=== PATIENT | male | born 1945 | race Caucasian/White ===

== ENCOUNTER 2016-06-12 13:58 | Emergency (ER) | payer MEDICARE, OTHER ==
[2016-06-12 16:18] LABS: Hematocrit 48 % (42-52); Hemoglobin 16.4 g/dl (14.0-18.0); Mean Corpuscular HGB Conc 34 g/dl (31-36); Mean Corpuscular Hemoglobin 31 pg (27-31); Mean Corpuscular Volume 90 fL (80-94); Mean Platelet Volume 9 um3 (7.4-10.4); Red Blood Count 5.35 10^6/ul (4.0-5.4); Red Cell Distribution Width 13 % (10.5-15); White Blood Count 9.1 10^3/ul (3.5-10.8)
[2016-06-12 16:33] LABS: Urine Bilirubin Negative (Negative); Urine Glucose Negative (Negative); Urine Nitrite Negative (Negative)
[2016-06-12 16:35] LABS: ALT 24 U/L (7-52); AST 19 U/L (13-39); Albumin 4.3 g/dL (3.2-5.2); Alkaline Phosphatase 81 U/L (34-104); Anion Gap 7 mmol/L (2-11); BUN/Creatinine Ratio 24.5 (8-20); Blood Urea Nitrogen 24 mg/dL (6-24); CO2 Carbon Dioxide 23 mmol/L (22-32); Calcium 9.5 mg/dL (8.6-10.3); Chloride 105 mmol/L (101-111); EGFR African American 97.2 (>60); EGFR Non-African American 75.6 (>60); Globulin 2.3 g/dL (2-4); Glucose 105 mg/dL (70-100); Lipase < 10 U/L (11.0-82.0); Potassium 4.2 mmol/L (3.5-5.0); Sodium 135 mmol/L (133-145); Total Protein 6.6 g/dL (6.4-8.9)
[2016-06-12] MEDS ORDERED: Iohexol 350* (CONTRAST) 500 ML MDV IV ONE (16:36)
--- NOTE | 2016-06-12 18:18 | RAD ---
INDICATION: Periumbilical and abdominal pain radiating to the back. COMPARISON: CT abdomen pelvis dated December 02, 2011 TECHNIQUE: Axial source images were acquired of the abdomen and pelvis utilizing CT angiographic technique with injection of 100 mL Omnipaque 350. Coronal and sagittal reconstructed images were acquired. 3-D volume rendered images were obtained. FINDINGS: Vascular findings: The lower thoracic and abdominal aorta is normal in diameter without focal pathologic dilatation or evidence of dissection. There is mild ectatic change of the abdominal aorta that also involves the bilateral iliac arteries. The iliac arteries are otherwise adequately patent and do not exhibit acute abnormality. Contrast is seen filling as far as the proximal superficial femoral arteries bilaterally. Visceral branches: There are single renal arteries bilaterally which appear adequately patent. The celiac axis, superior mesenteric artery, and inferior mesenteric artery are patent. 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 Nonvascular findings: The lung bases exhibit centrilobular emphysematous changes. Pleural-based linear densities are compatible with atelectasis. There is evidence of air trapping along the posterior aspect of both the visualized lower lobes. There is mild medium and small airway bronchiectatic dilatation. The liver, pancreas and adrenal glands are normal. The spleen is mildly enlarged measuring 13.3 cm in greatest axial dimension. The spleen is otherwise normal in appearance on these arterial phase images. The gallbladder is normal in appearance. On the arterial phase images the renal cortices enhance symmetrically. Fluid density cysts are seen bilaterally. There is no retroperitoneal or mesenteric lymphadenopathy. There is a small hiatal hernia. Surgical material at the base of the cecum is compatible with appendectomy. There is a midline supraumbilical hernia containing loops of small bowel as well as peritoneal fat. In the sagittal plane the defect measures approximately 3.7 cm in length while the herniated portions measure 11.5 cm. The exiting loop of small bowel is diminutive relative to the entering loop. Within the hernia the small bowel measures just under 2 cm in diameter and exhibits air-fluid levels. There is mild infiltration of the herniated mesenteric fat and a small amount of free fluid in the hernia. Scattered rectosigmoid diverticula are seen but none exhibit acute inflammatory change. Multilevel degenerative changes of the lower thoracic and lumbar spine are seen . There are no sinister bone lesions in the visualized bones. IMPRESSION: 1. No evidence of abdominal aortic aneurysm or acute dissection. 2. Supraumbilical midline hernia, new since the December 02, 2011 CT. There is evidence of mild inflammatory change of the mesenteric fat and partial obstruction of the involved loops of small bowel, but without pathologic dilatation. 3. 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 4. Additional chronic, degenerative and iatrogenic findings as described in the body of the report.
[2016-06-12 19:03] VITALS: BP 142/78
--- NOTE | 2016-06-12 23:29 | ED ---
I, Oh,Soantoine, scribed for Jose David Davies MD on 06/12/16 at 1616 . Abdominal Pain/Male - HPI Summary HPI Summary: This 70 y/o male presents to ED for acute, intermittent mid abd pain radiating to back since 1000 AM this morning. Pain is currently resolved in ED. He denies any n/v, fever, urinary symptoms, or any recent URI. Pt also denies any BM or flatulence at all today. PMHx is significant for ruptured appendicitis s/p emergency appendectomy by Dr. Pickens, hernia, COPD, HLD, and HTN. Pt states that his pain feels similar to his previous appendicitis, and decided to visit ED when he became concerned. - History of Current Complaint Chief Complaint: EDAbdPain Stated Complaint: ABD PAIN Time Seen by Provider: 06/12/16 16:00 Hx Obtained From: Patient Onset/Duration: Sudden Onset, Resolved Timing: Intermittent Pain Intensity: 5 Pain Scale Used: 0-10 Numeric Location: Other - mid abd pain Radiates: Yes Radiates to: Back Character: Dull Aggravating Factor(s): Nothing Alleviating Factor(s): Spontaneous Resolution Associated Signs And Symptoms: Positive: Constipation, Other - negative BM today. Negative: Fever, Nausea, Vomiting - Allergies/Home Medications Allergies/Adverse Reactions: Allergies Allergy/AdvReac Type Severity Reaction Status Date / Time Penicillins [PCN] Allergy Severe Hives/Diff. Verified 06/12/16 14:04 Breathing/I tching PMH/Surg Hx/FS Hx/Imm Hx Cardiovascular History: Reports: Hx Hypercholesterolemia, Hx Hypertension Respiratory History: Reports: Hx Chronic Obstructive Pulmonary Disease (COPD) GI History: Reports: Other GI Disorders - ruptured appendicitis s/p emergency appendectomy Infectious Disease History: No Infectious Disease History: Denies: Traveled Outside the [place] in Last 30 Days - Family History Known Family History: Positive: Hypertension - father - Social History Alcohol Use: None Hx Substance Use: No Substance Use Type: Reports: None Hx Tobacco Use: No Smoking Status (MU): Never Smoked Tobacco Review of Systems Negative: Fever Negative: Sore Throat, Nasal Discharge Positive: Abdominal Pain. Negative: Vomiting, Nausea, Other - flatulence or BM today Negative: dysuria Negative: Anxious, Depressed All Other Systems Reviewed And Are Negative: Yes Physical Exam Triage Information Reviewed: Yes Vital Signs On Initial Exam: Initial Vitals Temp Pulse Resp BP Pulse Ox 98.2 F 81 15 146/84 97 06/12/16 13:59 06/12/16 13:59 06/12/16 13:59 06/12/16 13:59 06/12/16 13:59 Vital Signs Reviewed: Yes Appearance: Positive: Well-Appearing, No Pain Distress Head/Face: Positive: Normal Head/Face Inspection ENT: Positive: Normal ENT inspection Neck: Positive: Supple, Nontender Respiratory/Lung Sounds: Positive: Clear to Auscultation, Breath Sounds Present Cardiovascular: Positive: RRR, Pulses are Symmetrical in both Upper and Lower Extremities. Negative: Leg Edema Left, Leg Edema Right Abdomen Description: Positive: Nontender, Soft, Other: - large anterior abd wall protrusion, right around the surgical scar. Easily reducible.. Negative: CVA Tenderness (R), CVA Tenderness (L) Bowel Sounds: Positive: Present - throughout Musculoskeletal: Positive: Strength/ROM Intact Neurological: Positive: Sensory/Motor Intact, Alert, Oriented to Person Place, Time Diagnostics - Vital Signs Vital Signs Temp Pulse Resp BP Pulse Ox 06/12/16 13:59 98.2 F 81 15 146/84 97 - Laboratory Lab Results: Lab Results 06/12/16 06/12/16 06/12/16 Range/Units 16:10 16:10 16:10 WBC 9.1 (3.5-10.8) 10^3/ul RBC 5.35 (4.0-5.4) 10^6/ul Hgb 16.4 (14.0-18.0) g/dl Hct 48 (42-52) % MCV 90 (80-94) fL MCH 31 (27-31) pg MCHC 34 (31-36) g/dl RDW 13 (10.5-15) % Plt Count 165 (150-450) 10^3/ul MPV 9 (7.4-10.4) um3 Neut % (Auto) 77.4 (38-83) % Lymph % (Auto) 14.5 L (25-47) % [place] % (Auto) 6.6 (1-9) % Eos % (Auto) 0.6 (0-6) % Baso % (Auto) 0.9 (0-2) % Absolute Neuts (auto) 7.0 (1.5-7.7) 10^3/ul Absolute Lymphs (auto) 1.3 (1.0-4.8) 10^3/ul Absolute Monos (auto) 0.6 (0-0.8) 10^3/ul Absolute Eos (auto) 0.1 (0-0.6) 10^3/ul Absolute Basos (auto) 0.1 (0-0.2) 10^3/ul Absolute Nucleated RBC 0 10^3/ul Nucleated RBC % 0 Sodium 135 (133-145) mmol/L Potassium 4.2 (3.5-5.0) mmol/L Chloride 105 (101-111) mmol/L Carbon Dioxide 23 (22-32) mmol/L Anion Gap 7 (2-11) mmol/L BUN 24 (6-24) mg/dL Creatinine 0.98 (0.67-1.17) mg/dL Est GFR ( Amer) 97.2 (>60) Est GFR (Non-Af Amer) 75.6 (>60) BUN/Creatinine Ratio 24.5 H (8-20) Glucose 105 H (70-100) mg/dL Lactic Acid 0.8 (0.5-2.0) mmol/L Calcium 9.5 (8.6-10.3) mg/dL Total Bilirubin 0.60 (0.2-1.0) mg/dL AST 19 (13-39) U/L ALT 24 (7-52) U/L Alkaline Phosphatase 81 (34-104) U/L C-Reactive Protein 2.10 (< 5.00) mg/L Total Protein 6.6 (6.4-8.9) g/dL Albumin 4.3 (3.2-5.2) g/dL Globulin 2.3 (2-4) g/dL Albumin/Globulin Ratio 1.9 (1-3) Lipase < 10 L (11.0-82.0) U/L Urine Color Urine Appearance Urine pH (5-9) Ur Specific [place] (1.010-1.030) Urine Protein (Negative) Urine Ketones (Negative) Urine Blood (Negative) Urine Nitrate (Negative) Urine Bilirubin (Negative) Urine Urobilinogen (Negative) Ur Leukocyte Esterase (Negative) Urine Glucose (Negative) 06/12/16 Range/Units 16:20 WBC (3.5-10.8) 10^3/ul RBC (4.0-5.4) 10^6/ul Hgb (14.0-18.0) g/dl Hct (42-52) % MCV (80-94) fL MCH (27-31) pg MCHC (31-36) g/dl RDW (10.5-15) % Plt Count (150-450) 10^3/ul MPV (7.4-10.4) um3 Neut % (Auto) (38-83) % Lymph % (Auto) (25-47) % [place] % (Auto) (1-9) % Eos % (Auto) (0-6) % Baso % (Auto) (0-2) % Absolute Neuts (auto) (1.5-7.7) 10^3/ul Absolute Lymphs (auto) (1.0-4.8) 10^3/ul Absolute Monos (auto) (0-0.8) 10^3/ul Absolute Eos (auto) (0-0.6) 10^3/ul Absolute Basos (auto) (0-0.2) 10^3/ul Absolute Nucleated RBC 10^3/ul Nucleated RBC % Sodium (133-145) mmol/L Potassium (3.5-5.0) mmol/L Chloride (101-111) mmol/L Carbon Dioxide (22-32) mmol/L Anion Gap (2-11) mmol/L BUN (6-24) mg/dL Creatinine (0.67-1.17) mg/dL Est GFR ( Amer) (>60) Est GFR (Non-Af Amer) (>60) BUN/Creatinine Ratio (8-20) Glucose (70-100) mg/dL Lactic Acid (0.5-2.0) mmol/L Calcium (8.6-10.3) mg/dL Total Bilirubin (0.2-1.0) mg/dL AST (13-39) U/L ALT (7-52) U/L Alkaline Phosphatase (34-104) U/L C-Reactive Protein (< 5.00) mg/L Total Protein (6.4-8.9) g/dL Albumin (3.2-5.2) g/dL Globulin (2-4) g/dL Albumin/Globulin Ratio (1-3) Lipase (11.0-82.0) U/L Urine Color Yellow Urine Appearance Clear Urine pH 5.0 (5-9) Ur Specific [place] 1.030 (1.010-1.030) Urine Protein Negative (Negative) Urine Ketones Negative (Negative) Urine Blood Negative (Negative) Urine Nitrate Negative (Negative) Urine Bilirubin Negative (Negative) Urine Urobilinogen Negative (Negative) Ur Leukocyte Esterase Negative (Negative) Urine Glucose Negative (Negative) Result Diagrams: 06/12/16 16:10 06/12/16 16:10 Lab Statement: Any lab studies that have been ordered have been reviewed, and results considered in the medical decision making process. - CT CTA abd/P CT Interpretation: Positive (See Comments) - 1. No evidence of abdominal aortic aneurysm or acute dissection. 2. Supraumbilical midline hernia, new since the December 02, 2011 CT. There is evidence of mild inflammatory change of the mesenteric fat and partial obstruction of the involved loops of small bowel, but without pathologic dilatation. 3. 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 4. Additional chronic, degenerative and iatrogenic findings as described in the body of the report. CT Interpretation Completed By: Radiologist Re-Evaluation - Re-Evaluation First Eval Re-Evaluation Time: 18:49 Comment: in room to update pt on CTA imaging. Fluid diet and outpatient f/u with Dr. Pickens are recommended. Pt and express understanding. Pt will return to ED with n/v and worsening abd pain. Abdominal Pain Fem Course/Dx - Course Assessment/Plan: He presents with intermittent, brief left sided abd pain. Pt describes pain mainly as aching, radiating to back. Primary concern concern was aneurysm, which was r/o. Secondly we considered ischemic bowel, which was clinically not likely. Lastly, we considered obstruction. CTA Ab/P did indicate some mild obstruction. However, pt is clinically not distended, not n/v and presents with clear bowel sounds. Mild hernia was noted to be easily reducible nontender. Pt agrees to toi f/u with further surgical workup and possible surgical repair. He will return to ED for any sign of dehydration or worsening of questionable obstruction. was present for the conversation, and they are reliable to follow through. - Diagnoses Differential Diagnosis/HQI/PQRI: Abdominal Aortic Aneurysm, Bowel Obstruction, Constipation, Diverticulitis, Ischemic Bowel, Ureteral Stone Provider Diagnoses: Abdominal pain Discharge - Discharge Plan Condition: Fair Disposition: HOME Patient Education Materials: Abdominal Pain (ED) Referrals: Sesar Gay MD [Primary Care Provider] - Chente Pickens MD [Medical Doctor] - 2 Days The documentation as recorded by the Ovidio cruz Soohyun accurately reflects the service I personally performed and the decisions made by Samson lewis Farzad, MD.
== END 2016-06-12 19:02 | disposition home or self-care (01) ==
LOC: ED 13:58
DX: R10.9 Unspecified abdominal pain (principal); K59.00 Constipation, unspecified
CPT/HCPCS: 36415; 74174; 80053; 81003; 83605; 83690; 85025; 86140; 99283; Q9967

== ENCOUNTER 2017-09-26 12:25 | Emergency (ER) | payer MEDICARE, BC ==
[2017-09-26 12:34] VITALS: BP 144/94
[2017-09-26] MEDS ORDERED: methylPREDNISolone 125 MG* 2 ML VIAL IM ONE (12:42)
[2017-09-26] MEDS ORDERED: Albuterol/Ipratropium NEB.SOL* Albuterol 2.5 MG/Ipratropium 0.5 MG 3 ML INH ONE ×2 (12:42→13:02)
--- NOTE | 2017-09-26 12:43 | ED ---
Respiratory - HPI Summary HPI Summary: 72-year-old male presents with shortness of breath for the past couple days. He states 2 weeks ago he came down a cold was seen at the [facility] and told he was having bronchitis. He was prescribed doxycycline and prednisone. He finished a course of antibiotics and steroid and felt better. He states his cough was yellow discharge then became laboratory equipment cleaner. He states that for a week he was at this baseline. He states the past couple days he developed the cough again. He states this feels similar to the infection two week ago. He admits to shortness of breath constantly. He has been using home oxygenation system daily. He states he ran out of his inhaler. He denies any chest pain. Denies any belly pain. No nausea vomiting. No sore throat. States that the shortness breath is worse at movement. He admits to wheezing. He is coughing up yellow discharge. - History of Current Complaint Chief Complaint: UCRespiratory Stated Complaint: SOB Time Seen by Provider: 09/26/17 12:36 Pain Intensity: 0 - Allergy/Home Medications Allergies/Adverse Reactions: Allergies Allergy/AdvReac Type Severity Reaction Status Date / Time Penicillins Allergy Severe Hives/Diff. Verified 09/26/17 12:26 Breathing/I tching Home Medications: Home Medications Albuterol/Ipratropium RESP(NF) [Combivent Respimat (NF)] 2 puff INH Q4HR PRN [History Confirmed 09/26/17] Atorvastatin* [Lipitor 10 MG*] 10 mg PO DAILY 09/26/17 [History Confirmed ] Fluticasone-Salmeterol 500-50* [Advair Diskus 500-50*] 1 puff INH BID 09/26/17 [ History Confirmed 09/26/17] Lisinopril TAB* [Prinivil TAB 10 MG*] 10 mg PO DAILY 09/26/17 [History Confirmed 09/26/17] PMH/Surg Hx/FS Hx/Imm Hx Endocrine/Hematology History: Denies: Hx Diabetes Cardiovascular History: Reports: Hx Hypercholesterolemia, Hx Hypertension Respiratory History: Reports: Hx Chronic Obstructive Pulmonary Disease (COPD) GI History: Reports: Other GI Disorders - ruptured appendicitis s/p emergency appendectomy History: Denies: Hx Renal Disease - Surgical History Surgery Procedure, Year, and Place: APPENDECTOMY Infectious Disease History: No Infectious Disease History: Denies: Traveled Outside the [place] in Last 30 Days - Family History Known Family History: Positive: Hypertension - father - Social History Alcohol Use: None Hx Substance Use: No Substance Use Type: Reports: None Hx Tobacco Use: No Smoking Status (MU): Former Smoker Review of Systems Negative: Fever Negative: Chest Pain Positive: Shortness Of Breath, Cough Negative: Abdominal Pain All Other Systems Reviewed And Are Negative: Yes Physical Exam Triage Information Reviewed: Yes Vital Signs On Initial Exam: Initial Vitals Temp Pulse Resp BP Pulse Ox 98.2 F 82 22 144/94 94 09/26/17 12:30 09/26/17 12:30 09/26/17 12:30 09/26/17 12:30 09/26/17 12:30 Vital Signs Reviewed: Yes Appearance: Positive: Well-Appearing Skin: Positive: Warm, Dry Head/Face: Positive: Normal Head/Face Inspection Eyes: Positive: Normal, EOMI, LAURA, Conjunctiva Clear ENT: Positive: Normal ENT inspection, Pharynx normal, TMs normal Respiratory/Lung Sounds: Positive: Decreased Breath Sounds, Wheezes Cardiovascular: Positive: Normal, RRR Abdomen Description: Positive: Nontender, Soft Bowel Sounds: Positive: Present Musculoskeletal: Positive: Normal Neurological: Positive: Normal Psychiatric: Positive: Normal Diagnostics - Vital Signs Vital Signs Temp Pulse Resp BP Pulse Ox 09/26/17 12:30 98.2 F 82 22 144/94 94 - Laboratory Lab Statement: Any lab studies that have been ordered have been reviewed, and results considered in the medical decision making process. - Radiology chest Xray Interpretation: Positive (See Comments) - IMPRESSION: HYPERINFLATION. NO ACTIVE DISEASE. Radiology Interpretation Completed By: Radiologist Re-Evaluation - Re-Evaluation First Eval Re-Evaluation Time: 13:11 Change: Improved Comment: feeling better after one neb, still some wheezing present Second Eval Re-Evaluation Time: 13:52 Change: Improved Comment: lungs CTA after second duoneb. will write for nebulizer machine Disposition - Course Course Of Treatment: 72-year-old male presents with shortness of breath for the past couple days. He states 2 weeks ago he came down a cold was seen at the [facility] and told he was having bronchitis. He was prescribed doxycycline and prednisone. He finished a course of antibiotics and steroid and felt better. He states his cough was yellow discharge then became laboratory equipment cleaner. He states that for a week he was at this baseline. He states the past couple days he developed the cough again. He states this feels similar to the infection two week ago. He admits to shortness of breath constantly. He has been using home oxygenation system daily. He states he ran out of his inhaler. He denies any chest pain. Denies any belly pain. No nausea vomiting. No sore throat. States that the shortness breath is worse at movement. He admits to wheezing. He is coughing up yellow discharge. on exam no resp distress. auditable wheezing heard. on exam decrease breath sounds. gave duoneb had improvement. chest xray hyperinflation. will try levaquin, steriod and inhaler and have follow up with primary about copd and blood pressure as is elevated at this time. told if gets any worst to go to ED. patient understand and agrees with plan. - Differential Dx - Cardiopulmonary Differential Diagnoses - Cardiopulmonary: Bronchitis, Exacerbation Of COPD, Lower Resp Infection - Diagnoses Provider Diagnoses: COPD (chronic obstructive pulmonary disease), Bronchitis Discharge - Sign-Out/Discharge Documenting (check all that apply): Discharge/Admit/Transfer - Discharge Plan Condition: Good Disposition: HOME Prescriptions: Albuterol/Ipratropium NEB.GARY* [Duoneb (Albuterol 2.5 MG/Ipratropium 0.5 MG)] 1 neb INH Q4H #30 neb.soln Levofloxacin TAB* [Levaquin TAB*] 500 mg PO DAILY #10 tab predniSONE TAB* [Deltasone TAB*] 50 mg PO DAILY #5 tab Patient Education Materials: COPD (Chronic Obstructive Pulmonary Disease) (ED) Referrals: Sesar Gay MD [Primary Care Provider] - Additional Instructions: Use nebulizer treatment every 4 hours for shortness of breath Take steroid once a day for 5 days Take antibiotic once daily for 10 days Take Tylenol for pain every 6 hours Follow up with primary within 5 days Return to ED if develop severe shortness of breath, worsening chest pain, or any new or worsening symptoms - Billing Disposition and Condition Condition: GOOD Disposition: HOME
--- NOTE | 2017-09-26 13:20 | RAD ---
INDICATION: Short of breath. COPD. COMPARISON: December 05, 2011 TECHNIQUE: PA and lateral dual-energy views were obtained. FINDINGS: Bones/Soft Tissues: There are no acute bony findings. Cardiomediastinal: The cardiomediastinal silhouette is normal. Lungs: There is hyperinflation with mild chronic interstitial changes with linear areas which are most consistent with scarring. Pleura: There are no pleural effusions. Other: None IMPRESSION: HYPERINFLATION. NO ACTIVE DISEASE.
== END 2017-09-26 13:55 | disposition home or self-care (01) ==
LOC: UCEAST 12:25
DX: J44.9 Chronic obstructive pulmonary disease, unspecified (principal); Z99.81 Dependence on supplemental oxygen; Z87.891 Personal history of nicotine dependence
CPT/HCPCS: 71046; 96372; 99213; A9270-GY; G0463; J2930

== ENCOUNTER 2017-11-17 12:04 | Emergency (ER) | payer MEDICARE ==
[2017-11-17 12:13] VITALS: BP 132/85
--- NOTE | 2017-11-17 12:20 | UC ---
Respiratory Complaint HPI - HPI Summary HPI Summary: 72 yo male presents with dry cough and increased SOB for the psat 3 days. He tells me that he has COPD and this happens every few months where he will develop a dry cough and feel increased work of breathing. He does have an oxygen machine at bedtime that he has been using. Has a nebulizer at home that he used once with great relief, but he ran out of neb solution. Denies fever, chills, sinus symptoms, sore throat, chest pain, n/v. - History of Current Complaint Chief Complaint: UCRespiratory Stated Complaint: COUGH,CONGESTED Time Seen by Provider: 11/17/17 12:19 Hx Obtained From: Patient Onset/Duration: Gradual Onset Severity Initially: Moderate Severity Currently: Moderate Pain Intensity: 6 Pain Scale Used: 0-10 Numeric Character: Cough: Nonproductive - Allergies/Home Medications Allergies/Adverse Reactions: Allergies Allergy/AdvReac Type Severity Reaction Status Date / Time Penicillins Allergy Severe Hives/Diff. Verified 11/17/17 12:13 Breathing/I tching PMH/Surg Hx/FS Hx/Imm Hx Endocrine History: Dyslipidemia Cardiovascular History: Hypertension Respiratory History: COPD - Surgical History Surgical History: Yes Surgery Procedure, Year, and Place: APPENDECTOMY - Family History Known Family History: Positive: Hypertension - father - Social History Occupation: Retired Lives: With Family Alcohol Use: None Substance Use Type: None Smoking Status (MU): Former Smoker When Did the Patient Quit Smoking/Using Tobacco: 2007 Household Exposure Type: Cigarettes Review of Systems Constitutional: Negative Skin: Negative Eyes: Negative ENT: Negative Respiratory: Cough Cardiovascular: Negative Gastrointestinal: Negative Neurovascular: Negative Neurological: Negative Psychological: Negative All Other Systems Reviewed And Are Negative: Yes Physical Exam - Summary Physical Exam Summary: GENERAL: NAD. WDWN. No pain distress. SKIN: No rashes, sores, lesions, or open wounds. HEENT: Head: AT/NC Eyes: Conjunctiva clear without inflammation or discharge. Ears: Hearing grossly normal. TMs intact, no bulging, erythema, or edema. Nose: Nasal mucosa pink and moist. NTTP maxillary and frontal sinus. Throat: Posterior oropharynx without exudates, erythema, or tonsillar enlargement. Uvula midline. NECK: Supple. Nontender. No lymphadenopathy. CHEST: Moderate wheezing throughout. No r/r. No accessory muscle use. Breathing comfortably and in no distress. CV: Pulses intact. Brisk cap refill. NEURO: Alert. CN II-XII grossly intact. PSYCH: Age appropriate behavior. Triage Information Reviewed: Yes Vital Signs: Initial Vital Signs Temp 96.8 F 11/17/17 12:07 Pulse 92 11/17/17 12:07 Resp 17 11/17/17 12:07 BP 132/85 11/17/17 12:07 Pulse Ox 95 11/17/17 12:07 Vital Signs Reviewed: Yes UC Diagnostic Evaluation - Laboratory O2 Sat by Pulse Oximetry: 95 Re-Evaluation - Re-Evaluation First Eval Change: Improved Comment: Improved s/p duoneb with less wheezing throughout Respiratory Course/Dx - Course Course Of Treatment: CXR: IMPRESSION: 1. LINEAR DENSITIES AT BOTH LUNG BASES MOST CONSISTENT WITH SUBSEGMENTAL ATELECTASIS OR. SCARRING. 2. BLUNTING OF THE RIGHT COSTOPHRENIC ANGLE CONSISTENT WITH A SMALL PLEURAL EFFUSION OR. PLEURAL THICKENING, UNCHANGED. 3. COPD. Suspect COPD exacerbation. Advised to have him f/u with his PCP next week or sooner if his symptoms persist or worsen. - Differential Dx/Diagnosis Provider Diagnoses: COPD exacerbation Discharge - Sign-Out/Discharge Documenting (check all that apply): Patient Departure - Discharge Plan Condition: Stable Disposition: HOME Prescriptions: Albuterol/Ipratropium NEB.GARY* [Duoneb (Albuterol 2.5 MG/Ipratropium 0.5 MG)] 1 neb INH Q4H PRN #30 neb.gary PRN Reason: Wheezing Azithromycin TAB* [Zithromax TAB (Z-VERNON) 250 mg #6 tabs] 2 tab PO .TODAY, THEN 1 DAILY #1 vernon Benzonatate CAP* [Tessalon 100 MG CAP*] 100 mg PO TID PRN #21 cap PRN Reason: Cough predniSONE TAB* [Deltasone TAB*] 50 mg PO DAILY #5 tab Patient Education Materials: COPD (Chronic Obstructive Pulmonary Disease) (DC) Referrals: Sesar Gay MD [Primary Care Provider] - Additional Instructions: If you develop a fever, shortness of breath, chest pain, new or worsening symptoms - please call your PCP or go to the ED. Your blood pressure was high at todays visit. Please see your primary provider within 4 weeks for recheck and re-evaluation. - Billing Disposition and Condition Condition: STABLE Disposition: Home
[2017-11-17] MEDS ORDERED: Albuterol/Ipratropium NEB.SOL* Albuterol 2.5 MG/Ipratropium 0.5 MG 3 ML INH ONE (12:27)
--- NOTE | 2017-11-17 12:53 | RAD ---
INDICATION: Cough, COPD. COMPARISON: Comparison is made with a prior chest x-ray study from September 26, 2017. TECHNIQUE: Dual-energy PA and lateral views of the chest were obtained. FINDINGS: The heart is within normal limits in size. Mediastinal and hilar contours appear within normal limits. There are linear densities at both lung bases. There is flattening of the diaphragms. There is blunting of the right costophrenic angle consistent with a small pleural effusion or pleural thickening which is unchanged. IMPRESSION: 1. LINEAR DENSITIES AT BOTH LUNG BASES MOST CONSISTENT WITH SUBSEGMENTAL ATELECTASIS OR SCARRING. 2. BLUNTING OF THE RIGHT COSTOPHRENIC ANGLE CONSISTENT WITH A SMALL PLEURAL EFFUSION OR PLEURAL THICKENING, UNCHANGED. 3. COPD.
== END 2017-11-17 13:15 | disposition home or self-care (01) ==
LOC: UCEAST 12:04
DX: J44.1 Chronic obstructive pulmonary disease with (acute) exacerbation (principal); I10 Essential (primary) hypertension; Z87.891 Personal history of nicotine dependence; Z99.81 Dependence on supplemental oxygen; Z88.0 Allergy status to penicillin
CPT/HCPCS: 71046; 99212; A9270-GY; G0463

== ENCOUNTER 2018-01-10 23:46 | Inpatient (IN) | payer MEDICARE ==
[2018-01-11] MEDS ORDERED: Ondansetron ODT TAB* 4 MG PO ONE (00:09)
[2018-01-11] MEDS ORDERED: Morphine VIAL* 10 MG/ML 1 ML VIAL IV ONE ×2 (00:10→00:50)
[2018-01-11] MEDS ORDERED: Morphine INJ* 2 MG/ML 1 ML SYRINGE (TWO MG - NEW SYRINGE VERSION) ONE (00:15)
--- NOTE | 2018-01-11 00:16 | ED ---
Abdominal Pain/Male - HPI Summary HPI Summary: Patient with history of ventral hernia 3 years complains of hernia suddenly becoming hard and not reducible this afternoon, associated with nausea vomiting and 8/10 pain radiating to lower back.. Also states no BM 2 days. Patient states hernia has never bothered him, normally soft and easily reducible when he lays flat. Denies fever, cough, sore throat, CP, SOB, diarrhea, change in urine. Medical history COPD, HTN, HDL. Abdominal/surgical history is appendectomy. States hernia appeared a few months after appendectomy. Patient states current meds are atorvastatin, lisinopril and inhaler. - History of Current Complaint Chief Complaint: EDAbdPain Stated Complaint: ABD PAIN Time Seen by Provider: 01/10/18 23:54 Hx Obtained From: Patient Onset/Duration: Sudden Onset Timing: Constant Severity Initially: Severe Severity Currently: Severe Pain Intensity: 9 Pain Scale Used: 0-10 Numeric Radiates to: Back Character: Sharp Aggravating Factor(s): Movement Alleviating Factor(s): Nothing Associated Signs And Symptoms: Positive: Back Pain, Nausea, Vomiting - Allergies/Home Medications Allergies/Adverse Reactions: Allergies Allergy/AdvReac Type Severity Reaction Status Date / Time Penicillins Allergy Severe Hives/Diff. Verified 11/17/17 12:13 Breathing/I tching Home Medications: Home Medications Spiriva CAP.INH* 1 puff INH BID 01/11/18 [History Confirmed 01/11/18] Vitamin D TAB* 1,000 units PO DAILY 01/11/18 [History Confirmed 01/11/18] PMH/Surg Hx/FS Hx/Imm Hx Endocrine/Hematology History: Denies: Hx Anticoagulant Therapy, Hx Diabetes Cardiovascular History: Reports: Hx Hypercholesterolemia, Hx Hypertension Denies: Hx Cardiac Arrest Comment Only: Other Cardiovascular Problems/Disorders - HIGH BLOOD PRESSURE Respiratory History: Reports: Hx Chronic Obstructive Pulmonary Disease (COPD) Denies: Hx Asthma GI History: Reports: Other GI Disorders - ruptured appendicitis s/p emergency appendectomy History: Denies: Hx Dialysis, Hx Renal Disease Neurological History: Denies: Hx CVA - Surgical History Surgery Procedure, Year, and Place: APPENDECTOMY Infectious Disease History: No Infectious Disease History: Denies: Traveled Outside the [place] in Last 30 Days - Family History Known Family History: Positive: Hypertension - father - Social History Alcohol Use: None Hx Substance Use: No Substance Use Type: Reports: None Hx Tobacco Use: No Smoking Status (MU): Former Smoker Review of Systems Constitutional: Negative Eyes: Negative ENT: Negative Cardiovascular: Negative Positive: Shortness Of Breath Gastrointestinal: Negative Positive: Abdominal Pain, Vomiting, Nausea Genitourinary: Negative Musculoskeletal: Negative Skin: Negative Neurological: Negative Psychological: Normal All Other Systems Reviewed And Are Negative: Yes Physical Exam - Summary Physical Exam Summary: Large hard ventral hernia. Nonreducible. No erythema, ecchymosis, extra warmth noted. Tender to palpation. Abdomen generally nontender to palpation in any other quadrant. Triage Information Reviewed: Yes Vital Signs On Initial Exam: Initial Vitals Temp Pulse Resp BP Pulse Ox 97.7 F 72 20 139/80 91 01/10/18 23:50 01/10/18 23:50 01/10/18 23:50 01/10/18 23:50 01/10/18 23:50 Vital Signs Reviewed: Yes Appearance: Positive: Well-Appearing Skin: Positive: Warm Head/Face: Positive: Normal Head/Face Inspection Eyes: Positive: Normal Neck: Positive: Supple Respiratory/Lung Sounds: Positive: Clear to Auscultation Cardiovascular: Positive: Normal Abdomen Description: Positive: Other: Musculoskeletal: Positive: Normal Neurological: Positive: Normal Psychiatric: Positive: Normal AVPU Assessment: Alert - [place] Coma Scale Best Eye Response: 4 - Spontaneous Best Motor Response: 6 - Obeys Commands Best Verbal Response: 5 - Oriented Coma Scale Total: 15 Diagnostics - Vital Signs Vital Signs Temp Pulse Resp BP Pulse Ox 01/10/18 23:50 97.7 F 72 20 139/80 91 - Laboratory Result Diagrams: 01/11/18 00:17 01/11/18 00:17 Lab Statement: Any lab studies that have been ordered have been reviewed, and results considered in the medical decision making process. Abdominal Pain Fem Course/Dx - Course Course Of Treatment: Patient with history of ventral hernia 3 years complains of hernia suddenly becoming hard and not reducible this afternoon, associated with nausea vomiting and 8/10 pain radiating to lower back.. Also states no BM 2 days. Patient states hernia has never bothered him, normally soft and easily reducible when he lays flat. Denies fever, cough, sore throat, CP, SOB, diarrhea, change in urine. Medical history COPD. Abdominal/surgical history is appendectomy. Physical exam:Large hard ventral hernia. Nonreducible. No erythema, ecchymosis, extra warmth noted. Tender to palpation. Abdomen generally nontender to palpation in any other quadrant. Vital signs normal. White count 13.9. Discussed patient with surgery Dr. Pickens recommended CT abdomen and pelvis with no contrast. Diagnosed with incarcerated hernia and bowel obstruction. Admitted for surgery - Diagnoses Provider Diagnoses: Incarcerated ventral hernia Discharge - Sign-Out/Discharge Documenting (check all that apply): Patient Departure - Discharge Plan Condition: Stable Disposition: ADMITTED TO [facility] Referrals: Sesar Gay MD [Primary Care Provider] - - Billing Disposition and Condition Condition: STABLE Disposition: Admitted to [facility]
[2018-01-11 00:23] LABS: ABS Basophils 0.1 10^3/ul (0-0.2); ABS Eosinophils 0.1 10^3/ul (0-0.6); ABS Lymphocytes 1.5 10^3/ul (1.0-4.8); ABS Monocytes 0.7 10^3/ul (0-0.8); ABS Neutrophils 11.5 10^3/ul (1.5-7.7); ABS Nucleated RBC 0 10^3/ul; Eosinophil % 0.6 % (0-6); Hematocrit 50 % (42-52); Hemoglobin 17.1 g/dl (14.0-18.0); Lymphocyte % 10.8 % (25-47); Mean Corpuscular HGB Conc 34 g/dl (31-36); Mean Corpuscular Hemoglobin 31 pg (27-31); Mean Corpuscular Volume 90 fL (80-94); Mean Platelet Volume 8.8 um3 (7.4-10.4); Nucleated Red Blood Cells % 0.3; Platelet Count 226 10^3/ul (150-450); Red Blood Count 5.57 10^6/ul (4.00-5.40); Red Cell Distribution Width 14 % (10.5-15); White Blood Count 13.9 10^3/ul (3.5-10.8)
[2018-01-11 00:41] LABS: EGFR Non-African American 65.1 (>60)
[2018-01-11 00:46] LABS: Urine Appearance Cloudy; Urine Blood Negative (Negative); Urine Color Yellow; Urine Ketones Negative (Negative); Urine Protein 2+(100 mg/dL) (Negative); Urine Red Blood Cell 1+(3-5/hpf) (Absent); Urine Specific Gravity 1.033 (1.010-1.030); Urine Urobilinogen Negative (Negative); Urine White Blood Cell Trace(0-5/hpf) (Absent)
[2018-01-11] MEDS ORDERED: Iohexol 300* (CONTRAST) 10 ML SDV IV ONE (01:10)
[2018-01-11] MEDS ORDERED: Succinylcholine* 20 MG/ML 10 ML VIAL ONE (01:43)
[2018-01-11] MEDS ORDERED: Lidocaine 2% PF * 5 ML VIAL ONE (01:43)
[2018-01-11] MEDS ORDERED: Propofol* 10 MG/ML 20 ML BTL IV PUSH ONE (01:43)
[2018-01-11] MEDS ORDERED: fentaNYL* 50 MCG/ML 2 ML VIAL (100 MCG VIAL) ONE ×5 (01:45→05:55)
[2018-01-11] MEDS ORDERED: oxyCODONE TAB* 5 MG TAB PO PRN (01:55)
[2018-01-11] MEDS ORDERED: Naloxone* 0.4 MG/ML 1 ML VIAL IV PRN (01:55)
[2018-01-11] MEDS ORDERED: Sodium Citrate/Citric Acid* 15 ML UDC PO ONE (01:55)
[2018-01-11] MEDS ORDERED: DiMENhydriNATE IV* 50 MG/ML VIAL IV PUSH PRN (01:55)
[2018-01-11] MEDS ORDERED: Acetaminophen IV 1GM/100ML * 1,000 MG/100 ML VIAL IVPB ONE (01:55)
[2018-01-11] MEDS ORDERED: Sodium Citrate/Citric Acid* 15 ML UDC ONE (02:03)
[2018-01-11] MEDS ORDERED: Clindamycin 900 MG/D5W BAG(*) 900 MG/50 ML BAG IVPB ONE (02:14)
[2018-01-11] MEDS ORDERED: Gentamicin ADULT (*) 400 MG in NS 0.9% 100 ML* 100 ML IVPB ONE (02:30)
[2018-01-11] MEDS ORDERED: Rocuronium* 10 MG/ML VIAL ONE (02:57)
[2018-01-11] MEDS ORDERED: Bupivacaine 0.25% SDV PF* 10 ML VIAL INJ ONE (03:08)
--- NOTE | 2018-01-11 03:10 | RAD ---
EXAM: CT Abdomen and Pelvis Without Intravenous Contrast CLINICAL HISTORY: 72 years old, male; Pain; Abdominal pain; Localized; Upper; Additional info: Ab pain TECHNIQUE: Axial computed tomography images of the abdomen and pelvis without intravenous contrast. All CT scans at this facility use at least one of these dose optimization techniques: automated exposure control; mA and/or kV adjustment per patient size (includes targeted exams where dose is matched to clinical indication); or iterative reconstruction. Coronal and sagittal reformatted images were created and reviewed. COMPARISON: CTA A/PW CTA ABD/PEL 06/12/2016 4:43 PM FINDINGS: Lung bases: Bilateral increased interstitial markings and areas of atelectasis. 3 mm nodule in the lingula (series 2 image 2). Mediastinum: Small hiatal hernia. ABDOMEN: Liver: Unremarkable. Gallbladder and bile ducts: Unremarkable. No calcified stones. No ductal dilation. Pancreas: Atrophic pancreas. No ductal dilation. Spleen: Unremarkable. No splenomegaly. Adrenals: Unremarkable. No mass. Kidneys and ureters: Stable bilateral renal cysts. No obstructing stones. No hydronephrosis. Stomach and bowel: Multiple dilated fluid filled small bowel loops in the left and midabdomen extending into the large anterior abdominal wall hernia with dilated afferent loop and decompressed efferent loop mild surrounding inflammatory changes surrounding the dilated small bowel loops in the left abdomen and within the hernial sac. Findings are concerning for small bowel obstruction with lead point in the hernial sac. Colon is unremarkable. PELVIS: Appendix: Status post appendectomy with postsurgical changes in the right lower quadrant. Bladder: Unremarkable. No stones. Reproductive: Unremarkable as visualized. ABDOMEN and PELVIS: Intraperitoneal space: Unremarkable. No free air. No significant fluid collection. Bones/joints: No acute fracture. No dislocation. Soft tissues: See above. Vasculature: Atherosclerosis. No abdominal aortic aneurysm. Lymph nodes: Unremarkable. No enlarged lymph nodes. IMPRESSION: Multiple dilated fluid filled small bowel loops in the left and midabdomen extending into the large anterior abdominal wall hernia with dilated afferent loop and decompressed efferent loop . Mild surrounding inflammatory changes surrounding the dilated small bowel loops in the left abdomen and within the hernial sac. Findings are concerning for small bowel obstruction with lead point in the hernial sac.
[2018-01-11] MEDS ORDERED: Phenylephrine IV* 40 MCG/ML 10 ML SYRINGE ONE (03:21)
[2018-01-11] MEDS ORDERED: EPHEDrine (Pressors)* 50 MG/ML VIAL ONE (03:37)
--- NOTE | 2018-01-11 03:41 | HP ---
CC: [facility]; Dr. Sesar Gay * HISTORY AND PHYSICAL: DATE OF ADMISSION: 01/11/18 - The patient is seen in the emergency room on 01/11/18. HISTORY OF PRESENT ILLNESS: Mr. Markham is a 72-year-old gentleman, who presents to the emergency room with complaints of enlarging and non-reducible hernia at the upper abdomen along with abdominal pain. The patient describes having hernia at previous laparoscopic appendectomy site in the right upper quadrant. This had been reducible and nonsymptomatic. The patient had been followed for this. This afternoon, he noted that he had some nausea and vomiting and hernia became more firm and nonreducible. The patient also describes having no bowel movement for over 2 days now. He is also obstipated. Denies any appetite. He has not eaten. PAST MEDICAL HISTORY: COPD, hypertension. PAST SURGICAL HISTORY: Laparoscopic appendectomy for perforated appendicitis, prolonged hospital course. MEDICATIONS: Include: 1. Atorvastatin. 2. Lisinopril. 3. Multiple inhalers. FAMILY HISTORY: Noncontributory. SOCIAL HISTORY: Retired. Former smoker, quit 12 years ago. He lives with his family. REVIEW OF SYSTEMS: Periodic shortness of breath is unchanged. Cardiac disease as described above. No fevers or chills. No appetite. Nausea and vomiting as described. Abdominal pain as described. Change in bowel habits as described. No endocrine disorders. No complications of anesthesia. The patient did have prolonged hospitalization in 2011 after the perforated appendix. No bleeding or clotting disorders, not on blood thinners. No psychiatric or neurologic diseases. PHYSICAL EXAMINATION GENERAL: He is alert and oriented x3, in no apparent distress. VITAL SIGNS: The patient is afebrile. Heart rate 60s, blood pressure 119/84, O2 saturation 91% on room air, respiration rate is 16. HEENT: Sclerae anicteric. Mucous membranes are dry. NECK: No lymphadenopathy. LUNGS: Clear. ABDOMEN: Obese, distended, tender with what appears to be a port site hernia that does measure approximately 7 cm with nonreducible abdominal contents with mild skin changes, tender to the touch, elsewhere in the abdomen is not tender. Decreased bowel sounds. No hernias elsewhere. RECTAL: Exam not performed. EXTREMITIES: With mild 1+ pitting edema, bilateral lower extremities. DIAGNOSTIC STUDIES/LAB DATA: Labs show white count of 13.9, H and H 17/50. Chemistry Panel: Sodium of 134, BUN 28, creatinine 1.1, which is above his baseline. LFTs and lipase normal. Urinalysis shows protein. The patient underwent a CAT scan, these images are not available on the computer at this point. IMPRESSION: Incarcerated ventral incisional hernia with secondary to small bowel obstructive symptoms. RECOMMENDATIONS: Exploratory laparotomy and repair of ventral hernia with possible mesh. The patient may require excision of bowel with likely re- anastomosis, possible prolonged hospitalization. I discussed this with the patient and recommended urgent intervention. The patient agrees to proceed. We spoke of the possible alternatives of taxis and observation, but I do not believe this is beneficial as the patient did undergo attempted reduction. The patient did listen as I discussed the possible complications, which include, but not limited to bleeding, infection, intestinal leak if the patient undergoes an anastomosis, small bowel injury, recurrent hernia, prolonged hospitalization, prolonged intubation, possibility of . The patient's questions were answered and consent was signed. We will give him IV fluids. He will receive dose of antibiotics before the operating room and get Johnston catheter placed. [id number]/[facility] #: [id number] MTDD
[2018-01-11] MEDS ORDERED: Ketorolac INJ* 30 MG/ML 1 ML VIAL ONE (03:58)
[2018-01-11] MEDS ORDERED: KETAMINE HCL* 50 MG/ML 10 ML VIAL ONE (04:11)
[2018-01-11] MEDS ORDERED: Sugammadex * 200 MG/2 ML VIAL IV PUSH ONE (04:26)
[2018-01-11] MEDS ORDERED: Ondansetron INJ* 2 MG/ML VIAL IV PRN (04:52)
--- NOTE | 2018-01-11 04:52 | BRIEFOPN ---
Brief Operative Note - Surgery Procedures: Pre-OP Diagnoses: incarcerated ventral hernia, SBO Post-op Diagnosis: same Procedure: mini exploratory laparotomy, HERBERTH, ventral hernia repair with mesh Surgeon: Celio Asst: None Anethesia: Mahin RAMIREZ EBL: 100ccc IVF: 2000cc LR Specimen: hernia sac Drains: #10 JOSH
[2018-01-11] MEDS ORDERED: Metoprolol Tartrate IV* 1 MG/ML 5 ML VIAL ONE (04:53)
[2018-01-11] MEDS ORDERED: Albuterol/Ipratropium RESP(NF) MDI (Combivent Respimat) INH PRN (04:55)
[2018-01-11] MEDS ORDERED: Albuterol/Ipratropium NEB.SOL* Albuterol 2.5 MG/Ipratropium 0.5 MG 3 ML INH PRN (04:55)
[2018-01-11] MEDS ORDERED: Naloxone* 0.4 MG/ML 1 ML VIAL IV PUSH PRN (04:56)
[2018-01-11] MEDS ORDERED: Albuterol/Ipratropium NEB.SOL* Albuterol 2.5 MG/Ipratropium 0.5 MG 3 ML INH SCH (05:00)
[2018-01-11] MEDS ORDERED: Morphine PCA ADULT* 5 MG/ML 30 ML PCA SCH (05:00)
[2018-01-11] MEDS ORDERED: Levalbuterol 0.63MG/3ML NEB* UNIT OF USE INH ONE ×2 (05:06→05:07)
[2018-01-11] MEDS: fentaNYL* 50 MCG/ML 2 ML VIAL (100 MCG VIAL) IV PRN ×3 (05:16→05:56)
[2018-01-11] MEDS ORDERED: Morphine PCA ADULT* 5 MG/ML 30 ML ONE (05:19)
[2018-01-11] MEDS ORDERED: Acetaminophen IV 1GM/100ML * 100 ML ONE (05:23)
[2018-01-11] MEDS ORDERED: DiMENhydriNATE IV* 50 MG/ML VIAL ONE (05:27)
[2018-01-11] MEDS ORDERED: SPIRIVA INH SCH (09:00)
[2018-01-11] MEDS: Lisinopril TAB* 10 MG PO SCH (09:47)
[2018-01-11] MEDS ORDERED: Dextrose 50% Syringe 50 ML* 25 GM/50 ML SYRINGE IV PUSH PRN (10:42)
[2018-01-11] MEDS: Albuterol/Ipratropium NEB.SOL* Albuterol 2.5 MG/Ipratropium 0.5 MG 3 ML INH SCH ×4 (11:04→23:50)
[2018-01-11] MEDS: Insulin LISPRO* 1 UNITS UNIT SUBCUT SCH ×2 (12:07→17:38)
[2018-01-11] MEDS ORDERED: Spiriva Inhaler DEVICE* 1 EACH DEVICE SCH (13:00)
[2018-01-11] MEDS ORDERED: Spiriva Inhaler DEVICE* 1 EACH DEVICE INH SCH (13:00)
[2018-01-11] MEDS ORDERED: Tiotropium CAP.INH* CAP.INH/18 MCG (USE ORDER SET !) INH SCH (13:00)
--- NOTE | 2018-01-11 13:23 | RAD ---
Indication: Hypoxia. Single frontal view of the chest performed at 1300 hours was reviewed. Comparison is made with previous exam dated November 17, 2017. Left basilar atelectasis is noted. Right lung field appears clear. Heart is of normal size and configuration. IMPRESSION: LEFT BASE ATELECTASIS. NO DEFINITE PNEUMONIA IS IDENTIFIED.
--- NOTE | 2018-01-11 13:46 | PN ---
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
[2018-01-11] MEDS: Heparin VIAL(*) 5000 UNITS/ML VIAL (FIVE THOUSAND) SUBCUT SCH ×2 (14:40→22:35)
--- NOTE | 2018-01-11 21:26 | CONS ---
CONSULTATION REPORT: DATE OF CONSULT: 01/11/18 PROVIDER: Gallo Bailey NP ATTENDING PHYSICIAN: Dr. Henley (report dictated by Gallo Bailey NP). PRIMARY CARE PROVIDER: Dr. Sesar Gay. REFERRING PROVIDER: Dr. Chente Pickens. REASON FOR CONSULT: Co-medical management. HISTORY OF PRESENT ILLNESS: Mr. Markham is a 72-year-old male who presented to the emergency department with complaints of enlarging and nonreducible hernia in the upper abdomen along with abdominal pain. The patient had associated nausea, vomiting, and low back pain. He reported constipation x2 days. Normally, he has been able to easily reduce the hernia when he lies flat; however, he was unable to do this. In the emergency department, he was evaluated by surgical team, Dr. Pickens, who was unable to reduce the hernia and noted a large hard ventral hernia in which he was diagnosed with incarcerated hernia and bowel obstruction. The patient underwent urgent surgical intervention and underwent an exploratory laparotomy and ventral hernia repair with mesh. Estimated blood loss was 100 mL. Postoperatively, the patient has done well and has been admitted to short-stay surgical unit. Hospital Medicine was asked to co-medical manage the patient's comorbidities. The patient has a history of COPD, hypertension, hyperlipidemia, and prediabetes. The patient is evaluated at the bedside in which he was found to be alert and oriented x3. He reports his abdomen feels distended, but states his pain is improved throughout the day, except when he coughs. He denies any flatulence or bowel movement. He reports that he is a prediabetic and his primary is following his hemoglobin A1c. He denies shortness of breath. He reports that his COPD is stable. Denies any recent exacerbation, cough, sputum production. He wears 2 L nasal cannula at nighttime. PAST MEDICAL HISTORY: 1. COPD, wears 2 L nasal cannula at bedtime. 2. Prediabetes with a hemoglobin A1c of 6.1. 3. Hypertension. 4. Hyperlipidemia. 5. Obesity. PAST SURGICAL HISTORY: Laparoscopic appendectomy for perforated appendicitis with prolonged hospital course. MEDICATIONS: Home medications: 1. Vitamin D 1000 units p.o. daily. 2. Spiriva cap 1 puff INH b.i.d. 3. Lipitor 10 mg p.o. daily. 4. Combivent 2 puffs INH q.4 hours p.r.n. 5. DuoNeb 1 neb INH q.4 hours. 6. Lisinopril 10 mg p.o. daily. Current medications reviewed and appreciated. ALLERGIES: PENICILLIN. FAMILY HISTORY: Reviewed and noncontributory. SOCIAL HISTORY: Former smoker, quitting approximately 12 years ago. Rare alcohol use. He is retired and lives with his . REVIEW OF SYSTEMS: A 14-point review of systems was performed. All the pertinent positives and negatives are mentioned in the history of present illness, otherwise are negative. PHYSICAL EXAM: Vital Signs: Temperature 98.9, heart rate 82, respirations 18, pulse oximetry 97% on 2 L nasal cannula, blood pressure 131/72. General Appearance: A 72-year-old male, lying in bed, alert and oriented x3, in no acute distress. HEENT: Head is normocephalic, atraumatic. Pupils are equal and reactive to light. Oropharynx is clear. Moist mucous membranes. Neck is supple. Cardiac: S1, S2. Regular rate and rhythm. No murmur, rub, or gallop appreciated. Lungs are clear to auscultation bilaterally. Good aeration throughout. Abdomen is obese, round, soft. Noted JOSH drain draining serosanguineous fluid. Hypoactive bowel sounds. Extremities: No clubbing, cyanosis, or edema. Neuro: Alert and oriented x3. No focal deficits noted. LABORATORY DATA: Sodium 134, potassium 4.8, chloride 102, carbon dioxide 21, anion gap 11, BUN 28, creatinine 1.11, glucose 190. Hemoglobin A1c 6.1. Calcium 10.9. Bilirubin 0.60, AST 23, ALT 28, alkaline phosphatase 86. C- reactive protein 2.51, total protein 7.0. Lipase less than 10. WBC is 13.9, RBC 5.57, HGB 17.1, HCT 50, MCV 90, MCH 31, MCHC 34, RDW 14, platelet count 226. Urinalysis, urine specific gravity of 1.033, protein 2+, rbc 1+, hyaline casts presents. ASSESSMENT AND PLAN: Mr. Markham is a 72-year-old male with a past medical history of obesity; chronic obstructive pulmonary disease, on 2 L nasal cannula at nighttime; hypertension; prediabetes; and history of hernia, who presented to the emergency department in the middle of the night with report of abdominal pain, nausea, who was found to have incarcerated hernia with bowel obstruction, was taken to the OR in the middle of the night for a laparotomy in which he had a ventral hernia repair with mesh. 1. Status post ventral hernia repair with mesh. Disposition per surgical team. 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 Continue bowel regimen. Encouraged ambulation. The patient continues to have a Johnston catheter, JOSH drain , and is tolerating a clear liquid diet at this point. 2. Hypertension. The patient's blood pressures are within normal limits. He has been continued on his lisinopril 10 mg daily. At this time, we will continue this and monitor blood pressures. 3. Chronic obstructive pulmonary disease. Appears to not be in exacerbation and is stable. Continue DuoNebs p.r.n. and may auto-sub Spiriva if we do not have inhales. 4. Prediabetes. Hemoglobin A1c is 6.1. He is noted to be hyperglycemic with a glucose of 190 on admission and per the patient, he had not had anything for approximately 24 hours at that point. We will place him on fingerstick blood glucose a.c. monitoring with lispro sliding scale. 5. Hyperlipidemia. Restart atorvastatin. 6. DVT prophylaxis. SCDs and heparin subcu. 7. Code status. Full code. The patient's is his healthcare proxy. TIME SPENT: Approximately 60 minutes were spent on this consultation. Hospital Medicine will continue to follow along. GALLO BAILEY, SHANNON [id number]/[facility] #: [id number] JAMES
[2018-01-11] MEDS: Ibuprofen TAB* 600 MG PO PRN (22:35)
--- NOTE | 2018-01-11 22:57 | OP ---
CC: Dr. Sesar Gay * DATE OF OPERATION: 01/11/18 - ROOM #336 DATE OF : 45 SURGEON: Chente Pickens MD. LAND LAW EXAMINER: None. ANESTHESIOLOGIST: Dr. Stockton. ANESTHESIA: General. PRE-OP DIAGNOSES: 1. Small bowel obstruction. 2. Incarcerated ventral hernia. POST-OP DIAGNOSES: 1. Small bowel obstruction. 2. Incarcerated ventral hernia. OPERATIVE PROCEDURE: Mini exploratory laparotomy, lysis of adhesions, repair of ventral hernia with mesh. ESTIMATED BLOOD LOSS: 100 cc. IV FLUIDS: 2 L of crystalloid fluid given. SPECIMEN: Hernia sac. DRAINS: #10 JOSH drain left in the subcutaneous space. DESCRIPTION OF PROCEDURE: The patient was identified in the preoperative area. He was marked, brought to the operating room, placed on the operating room table in supine position. Preoperative antibiotics were given. Sequential devices were placed in bilateral lower extremities. General anesthesia was induced in rapid sequence. Please see report for details. The patient then had a Johnston catheter placed. His abdomen was then prepped and draped in standard surgical fashion. Time-out was performed. A midline incision was made over the hernia site. This was deepened to the hernia sac, which was isolated around the full circumference clearing up the fascia on the inferior, superior, and lateral aspects. The hernia was then reduced. We opened up the sac and took a look at the small bowel contents. They turned out to be a sliding hernia with adhesions. The bowel appeared intact without evidence of necrosis. A sharp lysis was performed to free the small bowel from the hernia sac. The hernia sac was then ligated and passed off as specimen. The defect was approximately 5 x 3 cm with the 5 cm in the transverse fashion. The flaps were made inferior and superiorly and these were extended somewhat to be able to pull the fascia together for primary closure. We wished to do this over a mesh. Next the falciform was taken with 2-0 Polysorb sutures. This allowed for better placement of our planned intraabdominal mesh. Next, a bard Ventrio ST hernia patch was opened up, an 8 x 12 cm mesh and this was then parachuted into the defect with 0 Ethibond suture using 4 sutures in all. Once this is in, we used a secure strap and placed this in the pocket of the mesh in the appropriate fashion and tact this all around. The sutures were then tied. We assured that it laid intact along the anterior abdominal wall without any bowel pushing up through it. Next, the fascia was closed in transverse fashion with 0-Prolene sutures in a [id number] fashion. The wound was then irrigated. Hemostasis was achieved and #10 JOSH drain brought out through a separate stab incision and allowed to fall into the subcutaneous space, it was a large defect and the skin incision was reapproximated with skin ayah followed by sterile dressing. The patient tolerated the procedure well, was woken up in the OR, and transferred to the PACU in stable condition. [id number]/[facility] #: [id number] JAMES
[2018-01-12] MEDS: Albuterol/Ipratropium NEB.SOL* Albuterol 2.5 MG/Ipratropium 0.5 MG 3 ML INH SCH ×4 (04:19→20:32)
[2018-01-12 05:30] LABS: ABS Basophils 0 10^3/ul (0-0.2); ABS Eosinophils 0.1 10^3/ul (0-0.6); ABS Lymphocytes 1.4 10^3/ul (1.0-4.8); ABS Monocytes 0.8 10^3/ul (0-0.8); ABS Neutrophils 4.1 10^3/ul (1.5-7.7); ABS Nucleated RBC 0 10^3/ul; Eosinophil % 2.1 % (0-6); Hematocrit 42 % (42-52); Hemoglobin 14.3 g/dl (14.0-18.0); Lymphocyte % 21.8 % (25-47); Mean Corpuscular HGB Conc 34 g/dl (31-36); Mean Corpuscular Hemoglobin 31 pg (27-31); Mean Corpuscular Volume 91 fL (80-94); Mean Platelet Volume 8.8 um3 (7.4-10.4); Nucleated Red Blood Cells % 0.1; Platelet Count 150 10^3/ul (150-450); Red Blood Count 4.64 10^6/ul (4.00-5.40); Red Cell Distribution Width 14 % (10.5-15); White Blood Count 6.4 10^3/ul (3.5-10.8)
[2018-01-12 05:46] LABS: EGFR Non-African American 82.9 (>60)
[2018-01-12] MEDS: Ibuprofen TAB* 600 MG PO PRN ×3 (06:34→22:32)
[2018-01-12] MEDS: Heparin VIAL(*) 5000 UNITS/ML VIAL (FIVE THOUSAND) SUBCUT SCH ×3 (06:36→22:32)
[2018-01-12] MEDS ORDERED: Albuterol/Ipratropium NEB.SOL* Albuterol 2.5 MG/Ipratropium 0.5 MG 3 ML INH SCH (07:00)
[2018-01-12] MEDS ORDERED: Magnesium Sulfate 2 GM IV* 2 GM/50 ML BAG IVPB ONE (07:14)
[2018-01-12] MEDS: Atorvastatin* 10 MG TAB PO SCH (07:41)
[2018-01-12] MEDS: Lisinopril TAB* 10 MG PO SCH (07:41)
[2018-01-12] MEDS: Insulin LISPRO* 1 UNITS UNIT SUBCUT SCH ×3 (08:26→17:10)
--- NOTE | 2018-01-12 11:42 | PN ---
Progress Note - Progress Note Date of Service: 01/12/18 SOAP: Subjective: Pt seen and examined. Continued abdo pain, no flatus limited ambulation, no nausea tolerating clears Objective: Temp Pulse Resp BP Pulse Ox 98.1 F 78 16 112/55 95 01/12/18 08:08 01/12/18 08:08 01/12/18 08:08 01/12/18 08:08 01/12/18 08:08 Intake & Output 01/11/18 01/12/18 01/12/18 22:59 06:59 14:59 Intake Total 180 1390 300 Output Total 616 940 Balance -436 450 300 a and o x3, mild distress mucous membranes moist lungs decre BS b/l abdo: binder in place tender diffusely. no rebound, dressing intact JOSH sanguinous, hypoactive BS no calf tenderness Laboratory Last Values WBC 6.4 10^3/ul (3.5-10.8) 01/12/18 04:51 RBC 4.64 10^6/ul (4.00-5.40) 01/12/18 04:51 Hgb 14.3 g/dl (14.0-18.0) 01/12/18 04:51 Hct 42 % (42-52) 01/12/18 04:51 MCV 91 fL (80-94) 01/12/18 04:51 MCH 31 pg (27-31) 01/12/18 04:51 MCHC 34 g/dl (31-36) 01/12/18 04:51 RDW 14 % (10.5-15) 01/12/18 04:51 Plt Count 150 10^3/ul (150-450) 01/12/18 04:51 MPV 8.8 um3 (7.4-10.4) 01/12/18 04:51 Neut % (Auto) 64.0 % (38-83) 01/12/18 04:51 Lymph % (Auto) 21.8 % (25-47) L 01/12/18 04:51 [place] % (Auto) 11.7 % (0-7) H 01/12/18 04:51 Eos % (Auto) 2.1 % (0-6) 01/12/18 04:51 Baso % (Auto) 0.4 % (0-2) 01/12/18 04:51 Absolute Neuts (auto) 4.1 10^3/ul (1.5-7.7) 01/12/18 04:51 Absolute Lymphs (auto) 1.4 10^3/ul (1.0-4.8) 01/12/18 04:51 Absolute Monos (auto) 0.8 10^3/ul (0-0.8) 01/12/18 04:51 Absolute Eos (auto) 0.1 10^3/ul (0-0.6) 01/12/18 04:51 Absolute Basos (auto) 0 10^3/ul (0-0.2) 01/12/18 04:51 Absolute Nucleated RBC 0 10^3/ul 01/12/18 04:51 Nucleated RBC % 0.1 01/12/18 04:51 Sodium 135 mmol/L (135-145) 01/12/18 04:51 Potassium 4.1 mmol/L (3.5-5.0) 01/12/18 04:51 Chloride 102 mmol/L (101-111) 01/12/18 04:51 Carbon Dioxide 26 mmol/L (22-32) 01/12/18 04:51 Anion Gap 7 mmol/L (2-11) 01/12/18 04:51 BUN 18 mg/dL (6-24) 01/12/18 04:51 Creatinine 0.90 mg/dL (0.67-1.17) 01/12/18 04:51 Est GFR ( Amer) 100.4 (>60) 01/12/18 04:51 Est GFR (Non-Af Amer) 82.9 (>60) 01/12/18 04:51 BUN/Creatinine Ratio 20.0 (8-20) 01/12/18 04:51 Glucose 138 mg/dL (70-100) H 01/12/18 04:51 POC Glucose (mg/dL) 89 mg/dL (70-100) 01/12/18 07:55 Hemoglobin A1c 6.1 % (4.0-5.6) H 01/11/18 00:07 Calcium 8.5 mg/dL (8.6-10.3) L 01/12/18 04:51 Phosphorus 3.1 mg/dL (2.5-5.0) 01/12/18 04:51 Magnesium 1.7 mg/dL (1.9-2.7) L 01/12/18 04:51 Total Bilirubin 0.60 mg/dL (0.2-1.0) 01/11/18 00:17 AST 23 U/L (13-39) 01/11/18 00:17 ALT 28 U/L (7-52) 01/11/18 00:17 Alkaline Phosphatase 86 U/L (34-104) 01/11/18 00:17 C-Reactive Protein 2.51 mg/L (<8.01) 01/11/18 00:17 Total Protein 7.0 g/dL (6.4-8.9) 01/11/18 00:17 Albumin 4.5 g/dL (3.2-5.2) 01/11/18 00:17 Globulin 2.5 g/dL (2-4) 01/11/18 00: Albumin/Globulin Ratio 1.8 (1-3) 01/11/18 00:17 Lipase < 10 U/L (11.0-82.0) L 01/11/18 00:17 Urine Color Yellow 01/11/18 00:25 Urine Appearance Cloudy 01/11/18 00:25 Urine pH 5.0 (5-9) 01/11/18 00:25 Ur Specific [place] 1.033 (1.010-1.030) H 01/11/18 00:25 Urine Protein 2+(100 mg/dl) (Negative) A 01/11/18 00:25 Urine Ketones Negative (Negative) 01/11/18 00:25 Urine Blood Negative (Negative) 01/11/18 00:25 Urine Nitrate Negative (Negative) 01/11/18 00:25 Urine Bilirubin Negative (Negative) 01/11/18 00:25 Urine Urobilinogen Negative (Negative) 01/11/18 00:25 Ur Leukocyte Esterase Negative (Negative) 01/11/18 00:25 Urine WBC (Auto) Trace(0-5/hpf) (Absent) 01/11/18 00:25 Urine RBC (Auto) 1+(3-5/hpf) (Absent) A 01/11/18 00:25 Urine Bacteria Absent (Absent) 01/11/18 00:25 Hyaline Casts Present (Absent) A 01/11/18 00:25 Urine Glucose Negative (Negative) 01/11/18 00:25 Hepatitis C Antibody Nonreactive (Nonreactive) 01/12/18 04:51 Assessment: POD 1 mini lap, repair of incarc ventral hernia, HD stable, pain, respiratory difficulties Plan: pain control- SOCIAL SECURITY 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
--- NOTE | 2018-01-12 13:39 | PN ---
Subjective Date of Service: 01/12/18 Interval History: Patient has persistent low level pain in abdomen. Patient denies any nausea or vomiting. Patient is able to tolerate a clear liquid diet. Patient states he has slightly increased SOB. Patient denies CP, SOB, N/V, F/C, dizziness, dysuria , or palpitations. Patient has a chronic cough which is intermittently productive. Patient has not passed flatus or had a BM. Patient states he usually uses oxygen at 2L at home. Family History: Unchanged from Admission Social History: Unchanged from Admission Past Medical History: Unchanged from Admission Objective Active Medications: Albuterol/Ipratropium (Duoneb (Albuterol 2.5 Mg/Ipratropium 0.5 Mg)) 1 neb INH Q4H PRN PRN Reason: WHEEZING Last Admin: 01/11/18 12:58 Dose: 1 neb Albuterol/Ipratropium (Duoneb (Albuterol 2.5 Mg/Ipratropium 0.5 Mg)) 1 neb INH [id number] AWAKE [facility] Last Admin: 01/12/18 07:28 Dose: 1 neb Atorvastatin Calcium (Lipitor*) 10 mg PO DAILY [facility] Last Admin: 01/12/18 07:41 Dose: 10 mg Device (Tiotropium Inhaler Device*) 1 each INH .USE w/ SPIRIVA CAPS [facility] Dextrose (D50w Syringe 50 Ml*) 12.5 gm IV PUSH .FOR FS < 60 - SS PRN PRN Reason: FS < 60 Heparin Sodium (Porcine) (Heparin Vial(*)) 5,000 units SUBCUT Q8HR [facility] Last Admin: 01/12/18 06:36 Dose: 5,000 units Lactated Ringer's (Lactated Ringers 1000 Ml Bag*) 1,000 mls @ 125 mls/hr IV PER RATE [facility] Last Admin: 01/12/18 06:34 Dose: 125 mls/hr Morphine Sulfate (Morphine Professor Of Biochemistry Adult* 5 Mg/Ml) 30 mls @ 0 mls/hr MECHANICAL ENGINEERING PROFESSOR .change Q24H [facility]; Protocol Last Admin: 01/11/18 06:27 Dose: 1 mls/hr Ibuprofen (Motrin Tab*) 600 mg PO Q8H PRN PRN Reason: PAIN Last Admin: 01/12/18 06:34 Dose: 600 mg Insulin Human Lispro (Humalog*) 0 units SUBCUT AC [facility]; Protocol Last Admin: 01/12/18 12:14 Dose: Not Given Lisinopril (Prinivil Tab*) 10 mg PO DAILY [facility] Last Admin: 01/12/18 07:41 Dose: 10 mg Naloxone HCl (Narcan*) 0.08 mg IV PUSH .Q2MIN PRN PRN Reason: OVERSEDATION Ondansetron HCl (Zofran Inj*) 4 mg IV Q4H PRN PRN Reason: NAUSEA/VOMITING Vital Signs - 8 hr 01/12/18 01/12/18 01/12/18 06:00 06:52 07:20 Temperature Pulse Rate 77 Respiratory 18 20 Rate Blood Pressure (mmHg) O2 Sat by Pulse 93 96 97 Oximetry 01/12/18 01/12/18 01/12/18 07:28 08:08 10:00 Temperature 98.1 F Pulse Rate 76 78 Respiratory 16 16 18 Rate Blood Pressure 112/55 (mmHg) O2 Sat by Pulse 95 95 96 Oximetry 01/12/18 12:00 Temperature Pulse Rate Respiratory 19 Rate Blood Pressure (mmHg) O2 Sat by Pulse 95 Oximetry Oxygen Devices in Use Now: High Flow Nasal Cannula Appearance: Patient is a 72yo male who appears stated age and is sitting in the bed in [facility]. Eyes: No Scleral Icterus, PERRLA Ears/Nose/Mouth/Throat: NL Teeth, Lips, Gums, Clear Oropharnyx, Mucous Membranes Moist Neck: NL Appearance and Movements; NL JVP, Trachea Midline Respiratory: Symmetrical Chest Expansion and Respiratory Effort, - - Diminished throughout. No other adventitious lung sounds. Cardiovascular: NL Sounds; No Murmurs; No JVD, RRR, No Edema Abdominal: NL Sounds; No Tenderness; No Distention, No Hepatosplenomegaly Lymphatic: No Cervical Adenopathy Extremities: No Edema, No Clubbing, Cyanosis Skin: No Nodules or Sclerosis, - - JOSH drain, Abdominal Binder Neurological: Alert and Oriented x 3, NL Sensation, NL Muscle Strength and Tone , - - CN II-XII intact. Result Diagrams: 01/12/18 04:51 01/12/18 04:51 Microbiology and Other Data: Microbiology 01/11/18 00:25 Urine Culture - Final Urine No Growth (<1,000 CFU/mL) Assess/Plan/Problems-Billing Assessment: Patient is a 72yo male with a PMH for COPD on 2L O2 at home, HTN, HLD, and recent Appy who then had a ventral hernia with incarceration and bowel obstruction who is S/P repair with mesh. Patient is requiring 5L O2 but is otherwise doing well. - Patient Problems (1) Ventral hernia with bowel obstruction Current Visit: Yes Status: Acute Code(s): K43.6 - OTHER AND UNSP VENTRAL HERNIA WITH OBSTRUCTION, W/O GANGRENE SNOMED Code(s): 905019794 Comment: - POD#1 from repair. Management per primary team. - Pain moderately well controlled. (2) COPD (chronic obstructive pulmonary disease) Current Visit: Yes Status: Acute Code(s): J44.9 - CHRONIC OBSTRUCTIVE PULMONARY DISEASE, UNSPECIFIED SNOMED Code(s): 92431033 Comment: - Severe, on 2L O2 at home. - On 5L today. No adventitious lung sounds. - Possible mild COPD exacerbation or worsening oxygenation due to pain and opiates. - Will not treat with steroids due to recent operation. - Continue maintenance inhalers and PRN Duonebs - Pulmonary toilet (3) Prediabetes Current Visit: Yes Status: Acute Code(s): R73.03 - PREDIABETES SNOMED Code (s): 276801533 Comment: - Hemoglobin A1c 6.1. - SSI and FSGB for tight glucose control postoperatively. (4) HTN (hypertension) Current Visit: Yes Status: Acute Code(s): I10 - ESSENTIAL (PRIMARY) HYPERTENSION SNOMED Code(s): 28246676 Comment: - Normotensive on Lisinopril (5) HLD (hyperlipidemia) Current Visit: Yes Status: Acute Code(s): E78.5 - HYPERLIPIDEMIA, UNSPECIFIED SNOMED Code(s): 67486619 Comment: - Continue lipitor (6) Full code status Current Visit: Yes Status: Acute Code(s): Z78.9 - OTHER SPECIFIED HEALTH STATUS SNOMED Code(s): 598244200 (7) DVT prophylaxis Current Visit: Yes Status: Acute Code(s): XYD8398 - SNOMED Code(s): 570131191 Comment: - Heparin SubQ. Status and Disposition: Inpatient, disposition per primary team.
[2018-01-13] MEDS: Albuterol/Ipratropium NEB.SOL* Albuterol 2.5 MG/Ipratropium 0.5 MG 3 ML INH SCH ×4 (04:46→20:04)
[2018-01-13] MEDS: Heparin VIAL(*) 5000 UNITS/ML VIAL (FIVE THOUSAND) SUBCUT SCH ×3 (05:11→21:31)
[2018-01-13 05:31] LABS: ABS Basophils 0 10^3/ul (0-0.2); ABS Eosinophils 0.2 10^3/ul (0-0.6); ABS Lymphocytes 1.1 10^3/ul (1.0-4.8); ABS Monocytes 0.7 10^3/ul (0-0.8); ABS Neutrophils 3.8 10^3/ul (1.5-7.7); ABS Nucleated RBC 0 10^3/ul; Eosinophil % 3.1 % (0-6); Hematocrit 41 % (42-52); Hemoglobin 14.1 g/dl (14.0-18.0); Lymphocyte % 19.3 % (25-47); Mean Corpuscular HGB Conc 34 g/dl (31-36); Mean Corpuscular Hemoglobin 31 pg (27-31); Mean Corpuscular Volume 90 fL (80-94); Mean Platelet Volume 8.5 um3 (7.4-10.4); Nucleated Red Blood Cells % 0; Platelet Count 139 10^3/ul (150-450); Red Blood Count 4.58 10^6/ul (4.00-5.40); Red Cell Distribution Width 14 % (10.5-15); White Blood Count 5.8 10^3/ul (3.5-10.8)
[2018-01-13 05:46] LABS: EGFR Non-African American 88.6 (>60)
[2018-01-13] MEDS: Insulin LISPRO* 1 UNITS UNIT SUBCUT SCH ×2 (07:51→21:23)
--- NOTE | 2018-01-13 09:37 | PN ---
Progress Note - Progress Note Date of Service: 01/13/18 SOAP: Subjective: Feels a little better Still with incisional pain No flatus or BM Tolerating some clear liquids Had some CP last night-now resolved, seen by hospitalists and evaluated Objective: Temp Pulse Resp BP Pulse Ox 97.9 F 76 18 130/73 96 01/13/18 07:41 01/13/18 07:46 01/13/18 08:00 01/13/18 07:41 01/13/18 08:00 Intake & Output 01/11/18 01/12/18 01/13/18 01/14/18 06:59 06:59 06:59 06:59 Intake Total 2200 2750 2126 600 Output Total 235 1966 2385 675 Balance 1965 784 -259 -75 Weight 240 lb 240 lb Intake: IV Fluids 2200 1990 986 LR 2200 1989 986 Oral 760 1140 600 Output: JOSH #1 10 66 Urine 1525 2385 675 [place] 125 375 Estimated Blood Loss 100 PEX: Comfortable Lungs are clear, decreased breath sounds at the bases Abd is soft and distended. Incision is clean and dry. Few bowel sounds are present. JOSH with thin serous fluid. Ext with mild edema Laboratory Results - last 24 hr 01/12/18 01/12/18 01/12/18 04:51 11:56 16:58 WBC RBC Hgb Hct MCV MCH MCHC RDW Plt Count MPV Neut % (Auto) Lymph % (Auto) [place] % (Auto) Eos % (Auto) Baso % (Auto) Absolute Neuts (auto) Absolute Lymphs (auto) Absolute Monos (auto) Absolute Eos (auto) Absolute Basos (auto) Absolute Nucleated RBC Nucleated RBC % Sodium Potassium Chloride Carbon Dioxide Anion Gap BUN Creatinine Est GFR ( Amer) Est GFR (Non-Af Amer) BUN/Creatinine Ratio Glucose POC Glucose (mg/dL) 117 H 94 Calcium Magnesium Troponin I Hepatitis C Antibody Nonreactive 01/13/18 01/13/18 05:14 05:14 WBC 5.8 RBC 4.58 Hgb 14.1 Hct 41 L MCV 90 MCH 31 MCHC 34 RDW 14 Plt Count 139 L MPV 8.5 Neut % (Auto) 65.4 Lymph % (Auto) 19.3 L [place] % (Auto) 11.4 H Eos % (Auto) 3.1 Baso % (Auto) 0.8 Absolute Neuts (auto) 3.8 Absolute Lymphs (auto) 1.1 Absolute Monos (auto) 0.7 Absolute Eos (auto) 0.2 Absolute Basos (auto) 0 Absolute Nucleated RBC 0 Nucleated RBC % 0 Sodium 137 Potassium 4.0 Chloride 103 Carbon Dioxide 29 Anion Gap 5 BUN 13 Creatinine 0.85 Est GFR ( Amer) 107.2 Est GFR (Non-Af Amer) 88.6 BUN/Creatinine Ratio 15.3 Glucose 124 H POC Glucose (mg/dL) Calcium 8.6 Magnesium 1.9 Troponin I 0.00 Hepatitis C Antibody Assessment: POD# 3 s/p open repair of incarcerated ventral incisional hernia [id number] w/u negative Plan: Continue THREAD CHECKER Clear liquids Increase activity-pulmonary toilet Appreciated hospitalist care JOSH drain Add oral analgesia
[2018-01-13] MEDS ORDERED: oxyCODONE/Acetamin 5/325 MG* TAB ONE (09:46)
[2018-01-13] MEDS: Lisinopril TAB* 10 MG PO SCH (09:50)
[2018-01-13] MEDS: Atorvastatin* 10 MG TAB PO SCH (09:50)
--- NOTE | 2018-01-13 11:07 | PN ---
Subjective Date of Service: 01/13/18 Interval History: He had some SOB and chest pain in the middle of the night, relieved by a neb tx. Now c/o marked swelling both legs including calves and thighs. Family History: Unchanged from Admission Social History: Unchanged from Admission Past Medical History: Unchanged from Admission Objective Active Medications: Albuterol/Ipratropium (Duoneb (Albuterol 2.5 Mg/Ipratropium 0.5 Mg)) 1 neb INH Q4H PRN PRN Reason: WHEEZING Last Admin: 01/11/18 12:58 Dose: 1 neb Albuterol/Ipratropium (Duoneb (Albuterol 2.5 Mg/Ipratropium 0.5 Mg)) 1 neb INH [id number] AWAKE [facility] BY [facility] Last Admin: 01/13/18 07:43 Dose: 1 neb Atorvastatin Calcium (Lipitor*) 10 mg PO DAILY [facility] Last Admin: 01/13/18 09:50 Dose: 10 mg Device (Tiotropium Inhaler Device*) 1 each INH .USE w/ SPIRIVA CAPS REPLACED BY [facility] Dextrose (D50w Syringe 50 Ml*) 12.5 gm IV PUSH .FOR FS < 60 - SS PRN PRN Reason: FS < 60 Heparin Sodium (Porcine) (Heparin Vial(*)) 5,000 units SUBCUT Q8HR [facility] Last Admin: 01/13/18 05:11 Dose: 5,000 units Morphine Sulfate (Morphine Lumber Cutter Adult* 5 Mg/Ml) 30 mls @ 0 mls/hr WORKSHOP MANAGER .change Q24H REPLACED BY [facility]; Protocol Last Admin: 01/11/18 06:27 Dose: 1 mls/hr Lactated Ringer's (Lactated Ringers 1000 Ml Bag*) 1,000 mls @ 50 mls/hr IV PER RATE [facility]PLACED BY [facility] Ibuprofen (Motrin Tab*) 600 mg PO Q8H PRN PRN Reason: PAIN Last Admin: 01/12/18 22:32 Dose: 600 mg Insulin Human Lispro (Humalog*) 0 units SUBCUT AC [facility]PL[facility]ED BY [facility]; Protocol Last Admin: 01/13/18 07:51 Dose: Not Given Lisinopril (Prinivil Tab*) 10 mg PO DAILY [facility] Last Admin: 01/13/18 09:50 Dose: 10 mg Naloxone HCl (Narcan*) 0.08 mg IV PUSH .Q2MIN PRN PRN Reason: OVERSEDATION Ondansetron HCl (Zofran Inj*) 4 mg IV Q4H PRN PRN Reason: NAUSEA/VOMITING Oxycodone/Acetaminophen (Percocet 5/325 Tab*) 1 tab PO Q4H PRN PRN Reason: PAIN Vital Signs - 8 hr 01/13/18 01/13/18 01/13/18 03:51 04:36 04:47 Temperature 97.8 F 97.9 F Pulse Rate 74 76 78 Respiratory 16 16 20 Rate Blood Pressure 127/67 138/82 (mmHg) O2 Sat by Pulse 96 97 97 Oximetry 01/13/18 01/13/18 01/13/18 04:48 06:30 06:40 Temperature Pulse Rate Respiratory 18 Rate Blood Pressure (mmHg) O2 Sat by Pulse 98 97 97 Oximetry 01/13/18 01/13/18 01/13/18 07:41 07:46 08:00 Temperature 97.9 F Pulse Rate 71 76 Respiratory 18 16 18 Rate Blood Pressure 130/73 (mmHg) O2 Sat by Pulse 96 93 96 Oximetry 01/13/18 01/13/18 01/13/18 09:15 09:50 10:00 Temperature Pulse Rate Respiratory 18 18 18 Rate Blood Pressure (mmHg) O2 Sat by Pulse 92 Oximetry Oxygen Devices in Use Now: Nasal Cannula Appearance: Alert, in a chair. In good spirits. Looks comfortable. Eyes: No Scleral Icterus Respiratory: Symmetrical Chest Expansion and Respiratory Effort, Clear to Auscultation, Clear to Percussion Cardiovascular: NL Sounds; No Murmurs; No JVD, RRR, No Edema Extremities: No Clubbing, Cyanosis, - - No pitting but thighs and calves somewhat tight Skin: No Rash or Ulcers, No Nodules or Sclerosis Neurological: Alert and Oriented x 3, NL Sensation Result Diagrams: 01/13/18 05:14 01/13/18 05:14 Microbiology and Other Data: Microbiology 01/11/18 00:25 Urine Culture - Final Urine No Growth (<1,000 CFU/mL) Assess/Plan/Problems-Billing Assessment: Patient is a 72yo male with a PMH for COPD on 2L O2 at home, HTN, HLD, and recent Appy who then had a ventral hernia with incarceration and bowel obstruction who is S/P repair with mesh. Patient is requiring 5L O2 but is otherwise doing well. - Patient Problems (1) COPD (chronic obstructive pulmonary disease) Current Visit: Yes Status: Acute Code(s): J44.9 - CHRONIC OBSTRUCTIVE PULMONARY DISEASE, UNSPECIFIED SNOMED Code(s): 74717075 Comment: - Severe, on 2L O2 at home. - Continue maintenance inhalers and PRN Duonebs - Pulmonary toilet (2) HTN (hypertension) Current Visit: Yes Status: Acute Code(s): I10 - ESSENTIAL (PRIMARY) HYPERTENSION SNOMED Code(s): 78610587 Comment: Continue Lisinopril (3) Ventral hernia with bowel obstruction Current Visit: Yes Status: Acute Code(s): K43.6 - OTHER AND UNSP VENTRAL HERNIA WITH OBSTRUCTION, W/O GANGRENE SNOMED Code(s): 210685956 Comment: On clear liquid diet 01/13. - Pain adequately controlled with po oxy/APAP 01/13. (4) HLD (hyperlipidemia) Current Visit: Yes Status: Acute Code(s): E78.5 - HYPERLIPIDEMIA, UNSPECIFIED SNOMED Code(s): 07304322 Comment: - Continue lipitor (5) Prediabetes Current Visit: Yes Status: Acute Code(s): R73.03 - PREDIABETES SNOMED Code (s): 405472839 Comment: - Hemoglobin A1c 6.1. - SSI and FSGB BID as of 01/13. Status and Disposition: Inpatient, disposition per primary team.
[2018-01-13] MEDS: oxyCODONE/Acetamin 5/325 MG* TAB PO PRN ×2 (13:59→17:49)
[2018-01-14] MEDS: Albuterol/Ipratropium NEB.SOL* Albuterol 2.5 MG/Ipratropium 0.5 MG 3 ML INH SCH ×5 (00:46→19:20)
[2018-01-14] MEDS: oxyCODONE/Acetamin 5/325 MG* TAB PO PRN ×2 (06:33→11:20)
[2018-01-14] MEDS: Heparin VIAL(*) 5000 UNITS/ML VIAL (FIVE THOUSAND) SUBCUT SCH ×3 (06:34→21:01)
--- NOTE | 2018-01-14 08:52 | PN ---
Progress Note - Progress Note Date of Service: 01/14/18 Note: Surgery Mr. Markham reports he feels less pain today than yesterday, though it still hurts in the upper abd. It is still difficult to get up out of bed on his own. He is passing flatus and tolerating a diet. Vital Signs 01/13/18 01/13/18 01/13/18 09:15 09:50 10:00 Temperature Pulse Rate Respiratory 18 18 18 Rate Blood Pressure (mmHg) O2 Sat by Pulse 92 Oximetry 01/13/18 01/13/18 01/13/18 11:27 11:33 13:59 Temperature 97.6 F Pulse Rate 86 Respiratory 20 20 18 Rate Blood Pressure 135/87 (mmHg) O2 Sat by Pulse 92 Oximetry 01/13/18 01/13/18 01/13/18 14:21 15:38 16:01 Temperature 98.0 F Pulse Rate 80 89 Respiratory 16 18 16 Rate Blood Pressure 111/90 (mmHg) O2 Sat by Pulse 93 95 Oximetry 01/13/18 01/13/18 01/13/18 17:49 19:22 19:49 Temperature 98.3 F Pulse Rate 79 Respiratory 16 18 16 Rate Blood Pressure 115/60 (mmHg) O2 Sat by Pulse 94 Oximetry 01/13/18 01/13/18 01/13/18 20:03 20:05 23:50 Temperature 98.8 F Pulse Rate 83 74 Respiratory 16 20 20 Rate Blood Pressure 109/57 (mmHg) O2 Sat by Pulse 95 97 Oximetry 01/14/18 01/14/18 01/14/18 03:08 04:27 06:33 Temperature 97.9 F Pulse Rate 73 79 Respiratory 20 20 16 Rate Blood Pressure 110/60 (mmHg) O2 Sat by Pulse 95 93 Oximetry 01/14/18 01/14/18 07:33 07:54 Temperature 97.8 F Pulse Rate 85 Respiratory 16 16 Rate Blood Pressure 153/78 (mmHg) O2 Sat by Pulse 90 90 Oximetry Abd: distended, good BS, tender in upper abd. to right of incision. Incision: clean and dry, no signs of infection. JOSH drain: serosanguinous drainage. 10cc recorded yesterday. Intake & Output 01/13/18 01/14/18 01/14/18 22:59 06:59 14:59 Intake Total 200 Output Total 875 250 300 Balance -675 -126 -300 Intake: Oral 200 Output: Urine 875 250 300 Laboratory Results - last 24 hr 01/13/18 21:00 POC Glucose (mg/dL) 117 H A/P: POD#3 s/p HERBERTH and repair of incarcerated hernia. Making progress. Encourage more activity. Possible d/c tomorrow.
[2018-01-14] MEDS: Lisinopril TAB* 10 MG PO SCH (09:09)
[2018-01-14] MEDS: Atorvastatin* 10 MG TAB PO SCH (09:09)
[2018-01-14] MEDS: Insulin LISPRO* 1 UNITS UNIT SUBCUT SCH ×2 (09:13→21:09)
--- NOTE | 2018-01-14 10:11 | PN ---
Subjective Date of Service: 01/14/18 Interval History: Walks in the [place]. He uses O2 at night at home. Occ sl wheezy. No cough. Family History: Unchanged from Admission Social History: Unchanged from Admission Past Medical History: Unchanged from Admission Objective Active Medications: Albuterol/Ipratropium (Duoneb (Albuterol 2.5 Mg/Ipratropium 0.5 Mg)) 1 neb INH Q4H PRN PRN Reason: WHEEZING Last Admin: 01/11/18 12:58 Dose: 1 neb Albuterol/Ipratropium (Duoneb (Albuterol 2.5 Mg/Ipratropium 0.5 Mg)) 1 neb INH [id number] AWAKE [facility] Last Admin: 01/14/18 07:13 Dose: Not Given Atorvastatin Calcium (Lipitor*) 10 mg PO DAILY [facility] Last Admin: 01/14/18 09:09 Dose: 10 mg Device (Tiotropium Inhaler Device*) 1 each INH .USE w/ SPIRIVA CAPS [facility] Dextrose (D50w Syringe 50 Ml*) 12.5 gm IV PUSH .FOR FS < 60 - SS PRN PRN Reason: FS < 60 Heparin Sodium (Porcine) (Heparin Vial(*)) 5,000 units SUBCUT Q8HR [facility] Last Admin: 01/14/18 06:34 Dose: 5,000 units Ibuprofen (Motrin Tab*) 600 mg PO Q8H PRN PRN Reason: PAIN Last Admin: 01/12/18 22:32 Dose: 600 mg Insulin Human Lispro (Humalog*) 0 units SUBCUT Q12H [facility]; Protocol Last Admin: 01/14/18 09:13 Dose: 2 units Lisinopril (Prinivil Tab*) 10 mg PO DAILY [facility] Last Admin: 01/14/18 09:09 Dose: 10 mg Naloxone HCl (Narcan*) 0.08 mg IV PUSH .Q2MIN PRN PRN Reason: OVERSEDATION Ondansetron HCl (Zofran Inj*) 4 mg IV Q4H PRN PRN Reason: NAUSEA/VOMITING Oxycodone/Acetaminophen (Percocet 5/325 Tab*) 1 tab PO Q4H PRN PRN Reason: PAIN Last Admin: 01/14/18 06:33 Dose: 1 tab Vital Signs - 8 hr 01/14/18 01/14/1801/14/18 03:08 04:27 06:33 Temperature 97.9 F Pulse Rate 73 79 Respiratory 20 20 16 Rate Blood Pressure 110/60 (mmHg) O2 Sat by Pulse 95 93 Oximetry 01/14/18 01/14/18 01/14/18 07:33 07:54 09:09 Temperature 97.8 F Pulse Rate 85 Respiratory 16 16 18 Rate Blood Pressure 153/78 (mmHg) O2 Sat by Pulse 90 90 Oximetry Oxygen Devices in Use Now: Nasal Cannula Appearance: Alert, sitting on the edge of his bed. In good spirits. Looks comfortable. No cough during my visit. Eyes: No Scleral Icterus Respiratory: Symmetrical Chest Expansion and Respiratory Effort, Clear to Auscultation, Clear to Percussion Cardiovascular: NL Sounds; No Murmurs; No JVD, RRR, No Edema, - Extremities: No Edema, No Clubbing, Cyanosis, - Skin: No Rash or Ulcers, No Nodules or Sclerosis Neurological: Alert and Oriented x 3, NL Sensation Result Diagrams: 01/13/18 05:14 01/13/18 05:14 Microbiology and Other Data: Microbiology 01/11/18 00:25 Urine Culture - Final Urine No Growth (<1,000 CFU/mL) Assess/Plan/Problems-Billing Assessment: Patient is a 72yo male with a PMH for COPD on 2L O2 at home, HTN, HLD, and recent Appy who then had a ventral hernia with incarceration and bowel obstruction who is S/P repair with mesh. Patient is requiring 5L O2 but is otherwise doing well. - Patient Problems (1) COPD (chronic obstructive pulmonary disease) Current Visit: Yes Status: Acute Code(s): J44.9 - CHRONIC OBSTRUCTIVE PULMONARY DISEASE, UNSPECIFIED SNOMED Code(s): 50318038 Comment: On nocturnal O2 at home. - Continue maintenance inhalers and PRN Duonebs - Pulmonary toilet (2) HTN (hypertension) Current Visit: Yes Status: Acute Code(s): I10 - ESSENTIAL (PRIMARY) HYPERTENSION SNOMED Code(s): 72408154 Comment: Continue Lisinopril (3) Ventral hernia with bowel obstruction Current Visit: Yes Status: Acute Code(s): K43.6 - OTHER AND UNSP VENTRAL HERNIA WITH OBSTRUCTION, W/O GANGRENE SNOMED Code(s): 209330990 Comment: On soft diet 9/16. - Pain adequately controlled with po oxy/APAP. (4) HLD (hyperlipidemia) Current Visit: Yes Status: Acute Code(s): E78.5 - HYPERLIPIDEMIA, UNSPECIFIED SNOMED Code(s): 46088580 Comment: - Continue lipitor (5) Prediabetes Current Visit: Yes Status: Acute Code(s): R73.03 - PREDIABETES SNOMED Code (s): 420286412 Comment: - Hemoglobin A1c 6.1. - SSI and FSGB BID. Adequate glycemic control as of 01/14. Did not receive any Lispro 01/13, received 2 U 01/14 AM. Status and Disposition: Inpatient, disposition per primary team.
[2018-01-14] MEDS: Ibuprofen TAB* 600 MG PO PRN (18:10)
[2018-01-15] MEDS: Albuterol/Ipratropium NEB.SOL* Albuterol 2.5 MG/Ipratropium 0.5 MG 3 ML INH SCH ×4 (01:29→19:12)
[2018-01-15] MEDS: Heparin VIAL(*) 5000 UNITS/ML VIAL (FIVE THOUSAND) SUBCUT SCH ×3 (06:02→21:56)
[2018-01-15] MEDS: Atorvastatin* 10 MG TAB PO SCH (08:54)
[2018-01-15] MEDS: Lisinopril TAB* 10 MG PO SCH (08:55)
[2018-01-15] MEDS: Insulin LISPRO* 1 UNITS UNIT SUBCUT SCH ×2 (08:55→21:50)
--- NOTE | 2018-01-15 11:06 | PN ---
Subjective Date of Service: 01/15/18 Interval History: Pt c/o feeling that he needs to empty his bladder often and then he urinates just a little. Had a BM today Family History: Unchanged from Admission Social History: Unchanged from Admission Past Medical History: Unchanged from Admission Objective Active Medications: Albuterol/Ipratropium (Duoneb (Albuterol 2.5 Mg/Ipratropium 0.5 Mg)) 1 neb INH Q4H PRN PRN Reason: WHEEZING Last Admin: 01/11/18 12:58 Dose: 1 neb Albuterol/Ipratropium (Duoneb (Albuterol 2.5 Mg/Ipratropium 0.5 Mg)) 1 neb INH [id number] AWAKE [facility] Last Admin: 01/15/18 07:25 Dose: 1 neb Atorvastatin Calcium (Lipitor*) 10 mg PO DAILY [facility] Last Admin: 01/15/18 08:54 Dose: 10 mg Device (Tiotropium Inhaler Device*) 1 each INH .USE w/ SPIRIVA CAPS [facility] Dextrose (D50w Syringe 50 Ml*) 12.5 gm IV PUSH .FOR FS < 60 - SS PRN PRN Reason: FS < 60 Heparin Sodium (Porcine) (Heparin Vial(*)) 5,000 units SUBCUT Q8HR [facility] Last Admin: 01/15/18 06:02 Dose: 5,000 units Ibuprofen (Motrin Tab*) 600 mg PO Q8H PRN PRN Reason: PAIN Last Admin: 01/14/18 18:10 Dose: 600 mg Insulin Human Lispro (Humalog*) 0 units SUBCUT Q12H [facility]; Protocol Last Admin: 01/15/18 08:55 Dose: 2 units Lisinopril (Prinivil Tab*) 10 mg PO DAILY [facility] Last Admin: 01/15/18 08:55 Dose: 10 mg Naloxone HCl (Narcan*) 0.08 mg IV PUSH .Q2MIN PRN PRN Reason: OVERSEDATION Ondansetron HCl (Zofran Inj*) 4 mg IV Q4H PRN PRN Reason: NAUSEA/VOMITING Oxycodone/Acetaminophen (Percocet 5/325 Tab*) 1 tab PO Q4H PRN PRN Reason: PAIN Last Admin: 01/14/18 11:20 Dose: 1 tab Vital Signs - 8 hr 0901/15/18 01/15/18 03:30 07:25 07:27 Temperature 97.8 F 98.1 F Pulse Rate 71 69 68 Respiratory 18 17 14 Rate Blood Pressure 113/65 122/66 (mmHg) O2 Sat by Pulse 95 96 96 Oximetry 01/15/18 09:00 Temperature Pulse Rate Respiratory 18 Rate Blood Pressure (mmHg) O2 Sat by Pulse 96 Oximetry Oxygen Devices in Use Now: High Flow Nasal Cannula Appearance: 72 yo F in NAD, AAOx3 Eyes: No Scleral Icterus, PERRLA Ears/Nose/Mouth/Throat: NL Teeth, Lips, Gums, Mucous Membranes Moist Neck: NL Appearance and Movements; NL JVP, Trachea Midline Respiratory: Symmetrical Chest Expansion and Respiratory Effort, Clear to Auscultation Cardiovascular: NL Sounds; No Murmurs; No JVD, RRR Abdominal: - - mildly tender around inciions sites. JOSH drains in place. Midline incision stapled. no rebound, no guarding, BS+ Lymphatic: No Cervical Adenopathy Extremities: No Edema, No Clubbing, Cyanosis Skin: No Rash or Ulcers, No Nodules or Sclerosis Neurological: Alert and Oriented x 3, NL Muscle Strength and Tone Result Diagrams: 01/13/18 05:14 01/13/18 05:14 Microbiology and Other Data: Microbiology 01/11/18 00:25 Urine Culture - Final Urine No Growth (<1,000 CFU/mL) Assess/Plan/Problems-Billing Assessment: Patient is a 72yo male with a PMH for COPD on 2L O2 at home (at night only), HTN , HLD, and recent Appy who then had a ventral hernia with incarceration and bowel obstruction who is S/P repair with mesh. - Patient Problems (1) Ventral hernia with bowel obstruction Comment: On soft diet 01/14. - Pain adequately controlled with po oxy/APAP. Possible discharge by surgical service today (2) COPD (chronic obstructive pulmonary disease) Comment: On nocturnal O2 at home. - Continue maintenance inhalers and PRN Duonebs - Pulmonary toilet (3) HLD (hyperlipidemia) Comment: - Continue lipitor (4) HTN (hypertension) Comment: Continue Lisinopril controlled (5) Prediabetes Comment: - Hemoglobin A1c 6.1. - SSI and FSGB BID. cont diabetic diet (6) Urinary frequency Comment: to r/o U. retention will obtain post void residuals (7) DVT prophylaxis Comment: - Heparin SubQ. Status and Disposition: Inpatient, disposition per primary team.
--- NOTE | 2018-01-15 12:42 | PN ---
Progress Note - Progress Note Date of Service: 01/15/18 SOAP: Subjective:POD#4 s/p ex lap,HERBERTH,repair ventral hernia with mesh [place] soft diet;less pain;c/o inability to completely empty bladder;had formed stool this morning;ambulating;wearing binder [] Objective:afeb;VSS;O2 sat 96% on 4lpm;lungs:clear bilat;heart:RRR;abd:+bs,less bloated,soft;midline incision clean,no infection;ayah intact;JOSH scant serosang;ext:nontender calves,mild nonpitting edema;rodriguez cath reinserted after bladder scan revealed 645ml,additional 1000ml when cath inserted [] Assessment:stable other than urinary retention [] Plan:await UA results,r/o UTI;JOSH drain pulled;possible discharge later today or tomorrow morning;recheck this afternoon;discussed with []
[2018-01-15] MEDS: Tamsulosin CAP* 0.4 MG PO SCH (13:00)
[2018-01-15 15:02] LABS: Urine Appearance Clear; Urine Blood 1+ (Negative); Urine Color Yellow; Urine Ketones Negative (Negative); Urine Protein Negative (Negative); Urine Red Blood Cell 1+(3-5/hpf) (Absent); Urine Specific Gravity 1.009 (1.010-1.030); Urine Urobilinogen Negative (Negative); Urine White Blood Cell Trace(0-5/hpf) (Absent)
[2018-01-15] MEDS: Acetaminophen TAB* 325 MG PO PRN ×2 (15:39→20:12)
[2018-01-16] MEDS: Albuterol/Ipratropium NEB.SOL* Albuterol 2.5 MG/Ipratropium 0.5 MG 3 ML INH SCH ×3 (00:47→13:07)
[2018-01-16] MEDS: Acetaminophen TAB* 325 MG PO PRN (01:39)
[2018-01-16] MEDS: Heparin VIAL(*) 5000 UNITS/ML VIAL (FIVE THOUSAND) SUBCUT SCH (05:54)
--- NOTE | 2018-01-16 08:08 | PN ---
Subjective Date of Service: 01/16/18 Interval History: pt 's cath was taken out last night as per surgery. Today pt is able to urinate "very little" Post op abd pain "tolerable". JOSH drains were removed yesterday Family History: Unchanged from Admission Social History: Unchanged from Admission Past Medical History: Unchanged from Admission Objective Active Medications: Acetaminophen (Tylenol Tab*) 650 mg PO Q4H PRN PRN Reason: FEVER/HEADACHE Last Admin: 01/16/18 01:39 Dose: 650 mg Albuterol/Ipratropium (Duoneb (Albuterol 2.5 Mg/Ipratropium 0.5 Mg)) 1 neb INH Q4H PRN PRN Reason: WHEEZING Last Admin: 01/11/18 12:58 Dose: 1 neb Albuterol/Ipratropium (Duoneb (Albuterol 2.5 Mg/Ipratropium 0.5 Mg)) 1 neb INH [id number] AWAKE [facility] Last Admin: 01/16/18 07:10 Dose: 1 neb Atorvastatin Calcium (Lipitor*) 10 mg PO DAILY [facility] Last Admin: 01/15/18 08:54 Dose: 10 mg Device (Tiotropium Inhaler Device*) 1 each INH .USE w/ SPIRIVA CAPS [facility] Dextrose (D50w Syringe 50 Ml*) 12.5 gm IV PUSH .FOR FS < 60 - SS PRN PRN Reason: FS < 60 Heparin Sodium (Porcine) (Heparin Vial(*)) 5,000 units SUBCUT Q8HR [facility] Last Admin: 01/16/18 05:54 Dose: 5,000 units Ibuprofen (Motrin Tab*) 600 mg PO Q8H PRN PRN Reason: PAIN Last Admin: 01/14/18 18:10 Dose: 600 mg Insulin Human Lispro (Humalog*) 0 units SUBCUT Q12H [facility]; Protocol Last Admin: 01/15/18 21:50 Dose: Not Given Lisinopril (Prinivil Tab*) 10 mg PO DAILY [facility] Last Admin: 01/15/18 08:55 Dose: 10 mg Naloxone HCl (Narcan*) 0.08 mg IV PUSH .Q2MIN PRN PRN Reason: OVERSEDATION Ondansetron HCl (Zofran Inj*) 4 mg IV Q4H PRN PRN Reason: NAUSEA/VOMITING Oxycodone/Acetaminophen (Percocet 5/325 Tab*) 1 tab PO Q4H PRN PRN Reason: PAIN Last Admin: 01/14/18 11:20 Dose: 1 tab Tamsulosin HCl (Flomax Cap*) 0.4 mg PO DAILY [facility] Last Admin: 01/15/18 13:00 Dose: 0.4 mg Vital Signs - 8 hr 01/16/18 01/16/18 01/16/18 00:35 00:49 03:51 Temperature 97.9 F Pulse Rate 86 71 Respiratory 20 20 Rate Blood Pressure 124/72 (mmHg) O2 Sat by Pulse 94 96 96 Oximetry 01/16/18 01/16/18 07:13 07:23 Temperature 97.6 F Pulse Rate 76 81 Respiratory 16 18 Rate Blood Pressure 145/70 (mmHg) O2 Sat by Pulse 91 90 Oximetry Oxygen Devices in Use Now: Nasal Cannula Appearance: 72 yo M in nAD, aAOx3 Eyes: No Scleral Icterus, PERRLA Ears/Nose/Mouth/Throat: NL Teeth, Lips, Gums, Mucous Membranes Moist Neck: NL Appearance and Movements; NL JVP, Trachea Midline Respiratory: Symmetrical Chest Expansion and Respiratory Effort, Clear to Auscultation Cardiovascular: NL Sounds; No Murmurs; No JVD Abdominal: - - post op mid abd incision stapled. Abd mildly tender in eric- incision area, no rebound , no guarding BS+ Result Diagrams: 01/13/18 05:14 01/13/18 05:14 Microbiology and Other Data: Microbiology 01/11/18 00:25 Urine Culture - Final Urine No Growth (<1,000 CFU/mL) Assess/Plan/Problems-Billing Assessment: Patient is a 72yo male with a PMH for COPD on 2L O2 at home (at night only), HTN , HLD, and recent Appy who then had a ventral hernia with incarceration and bowel obstruction who is S/P repair with mesh. - Patient Problems (1) Ventral hernia with bowel obstruction Comment: On soft diet 01/14. - Pain adequately controlled with po oxy/APAP. Possible discharge by surgical service today (2) COPD (chronic obstructive pulmonary disease) Comment: On nocturnal O2 at home. - Continue maintenance inhalers and PRN Duonebs - Pulmonary toilet (3) HLD (hyperlipidemia) Comment: - Continue lipitor (4) HTN (hypertension) Comment: Continue Lisinopril controlled (5) Prediabetes Comment: - Hemoglobin A1c 6.1. - SSI and FSGB BID. cont diabetic diet (6) Urinary frequency Comment: Johnston removed last night, now re-evaluating for U. retention again Flomax started. Pt may need to go home with Johnston and have urology f/u as outpatient if he continues to retain significant amount of urine UA unremarkable (7) DVT prophylaxis Comment: - Heparin SubQ. Status and Disposition: Inpatient, disposition per primary team.
[2018-01-16] MEDS: Atorvastatin* 10 MG TAB PO SCH (09:36)
[2018-01-16] MEDS: Lisinopril TAB* 10 MG PO SCH (09:36)
[2018-01-16] MEDS: Tamsulosin CAP* 0.4 MG PO SCH (09:36)
[2018-01-16] MEDS: Insulin LISPRO* 1 UNITS UNIT SUBCUT SCH (09:36)
[2018-01-16 12:40] VITALS: BP 139/75
== END 2018-01-16 14:25 | disposition home or self-care (01) | DRG 336 ==
LOC: ED 23:46 → OR 01-11 02:23 → SSU 01-11 04:52
PROVIDERS: ADMIT Surgery; ATTEND Surgery
PROC: 0DN80ZZ Release Small Intestine, Open Approach (ICD-10-PCS; 2018-01-11)
PROC: 0WUF0JZ Supplement Abdominal Wall with Synthetic Substitute, Open Approach (ICD-10-PCS; principal; 2018-01-11 02:40)
DX: K43.6 Other and unspecified ventral hernia with obstruction, without gangrene (principal); K56.50 Intestinal adhesions [bands], unspecified as to partial versus complete obstruction; J44.9 Chronic obstructive pulmonary disease, unspecified; Z99.81 Dependence on supplemental oxygen; R73.03 Prediabetes; I10 Essential (primary) hypertension; E78.5 Hyperlipidemia, unspecified; E66.9 Obesity, unspecified; R06.03 Acute respiratory distress; R07.9 Chest pain, unspecified; R35.0 Frequency of micturition; Z87.891 Personal history of nicotine dependence; Z88.0 Allergy status to penicillin; Z68.32 Body mass index [BMI] 32.0-32.9, adult; Z79.899 Other long term (current) drug therapy
CPT/HCPCS: 36415; 71045; 74176; 80048; 80053; 81003; 81015; 83036; 83690; 83735; 84100; 84484; 85025; 86140; 86803; 87086; 88302; 90686; 93005; 94640; 96374; 99284; A9270-GY; C1776; C1781; J0330; J1240; J1580; J1644; J1885; J2270; J2704; J3010; J3475; J3490

== ENCOUNTER 2018-01-20 22:42 | Emergency (ER) | payer MEDICARE ==
--- OUTSIDE RECORDS SUMMARY | 2018-01-20 23:01 | XMS REPORT ---
:1945 External Reference #:[id number] Author Organization [facility] Address [address] [place] [address] [address] [place] [address] Phone [phone] Care Team Providers Name Role Phone Andrey Moses M.D. Care Team Information Chief Executive Officer Unavailable Payers Type Date Identification Numbers Payment Provider Subscriber Medicare Primary Expires: Policy Number: Medicare Bhavin Markham 2017 [id number] PayID: [id number] [address] [place] [address] Medigap Part B Expires: 2017 Policy Number: [employer] Bhavin Markham [id number] PayID: [id number] [address] [place] [address] Health Maintenance Policy Number: Medicare Blue Ppo Bhavin Markham Organization (HMO) [id number] PayID: [id number] [address] [address] [place] [address] Problems Description No Information Social History Description No Information Available Allergies, Adverse Reactions, Alerts Description No Information Medications Description No Information Results Description No Information Procedures Description No Information Plan of Care No Information Available
--- OUTSIDE RECORDS SUMMARY | 2018-01-20 23:01 | XMS REPORT ---
:1945 External Reference #:[id number] Author Organization [facility] Address [address] [place] [address] Phone [phone] Care Team Providers Name Role Phone Sesar Gay MD Primary Care Physician Unavailable Payers Type Date Identification Numbers Payment Provider Subscriber Medicare Primary Expires: Policy Number: Medicare Roni Markham 2017 [id number] PayID: [id number] [address] [place] [address] [place] Part B Expires: 2017 Policy Number: [employer] Insurance Roni Markham [id number] PayID: [id number] [address] [place] [address] Health Maintenance Policy Number: Medicare Blue Ppo Roni Markham Organization (HMO) [id number] PayID: [id number] [address] [address] [place] [address] Problems Description No Information Family History Date Family Member(s) Problem(s) Comments General Heart Disease General Hypertension Social History Type Date Description Comments Marital Status Lives With Family Occupation Retired ETOH Use Denies alcohol use Smoking Patient is a former smoker quit 2005 Recreational Drug Use Denies Drug Use Exercise Type/Frequency Exercises regularly Allergies, Adverse Reactions, Alerts Date Description Reaction Status Severity Comments 01/18/2018 Penicillin active Medications Medication Date Status Form Strength Qnty SIG Indications Ordering Provider Atorvastatin / Active Tablets 20mg take 1 Unknown Calcium 0000 tablet at bedtime Lisinopril / Active Tablets 10mg 1 by mouth Unknown 0000 every day Albuterol / Active Nebulizer (2.5mg/3ML 1 vial via Unknown Sulfate 0000 ) 0.083% nebulizer 4 times daily as needed Vitamin D 00/00/ Active Tablets 1000Unit by mouth Unknown 0000 everyday Tamsulosin HCL / Active Capsules 0.4mg 1 by mouth Unknown 0000 every day Advair Diskus / Active Aerosol inhale one Unknown 0000 puff by mouth twice a day Spiriva / Hx Aerosol 1.25mcg/Ac inhale two Unknown Respimat 0000 t puffs by mouth every day Oxycodone-Acet / Hx Tablets 5-325mg 1-2 tabs by Unknown aminophen 0000 mouth every 4-6 hours as needed for pain Vital Signs Date Vital Result Comment 01/18/2018 Height 71 inches 5'11" Weight 240.00 lb Heart Rate 82 /min BP Systolic 140 mmHg BP Diastolic 92 mmHg Respiratory Rate 18 /min Body Temperature 98.7 F BMI (Body Mass Index) 33.5 kg/m2 Results Test Date Test Result H/L Range Note Laboratory test 01/11/2018 Surgical Pathology SEE RESULT BELOW 1 finding 1 SEE RESULT BELOW Name: RONI MARKHAM : [address]: Chente Pickens MD Acct: [id number] Unit: [id number] AGE: 72 Location: [place] [id number] Re01/11/18 Dis: 01/16/18 SEX: M Status: DIS IN SPEC: [id number] MIGUEL: 01/11/18- SUBM DR: Chente Pickens MD REQ: [id number] RECD: 01/11/185 STATUS: SOUT _ ORDERED: LEVEL 2 FINAL DIAGNOSIS Hernia sac, excision: -- Benign fibromembranous tissue, compatible with hernia sac. PRE-OPERATIVE DIAGNOSIS Incarcerated ventral hernia. GROSS DESCRIPTION The specimen is received in formalin labeled, Hernia Sac, and consists of an 18.8 x 8.1 by up to 1.9 cm tripp-red irregular to semi-saccular wrinkled portion of fibromembranous tissue with abundant adherent yellow fat. [employer] Tit[employer] sections, one cassette. Signed by and Reported on: Malathi Stearns MD 01/17/18 1336 END OF REPORT DEPARTMENT OF PATHOLOGY, [address] [place] [address] Nadeem Franklin M.D. Director [facility] # [id number] Procedures Date CPT Code Description Status 01/11/2018 57485 Implant For Incisional/Ventral Hernia Repair Completed 01/11/2018 07814 Repair Hernia Incisional Initial, Incarcerated Or Completed Strangulated Encounters Type Date Location Provider CPT E/M Dx Office Visit 01/11/2018 7:00a [facility] [place] [address] K43.6 [facility] Plan of Care Future Appointment(s):02/15/2018 1:00 pm - Chente Pickens MD at [facility]01/18/2018 - Chente Pickens MDK43.6 Other and unsp ventral hernia with obstruction, w/o gangrene
--- NOTE | 2018-01-20 23:20 | ED ---
GI/ HPI - HPI Summary HPI Summary: This is scribe Ben Paty documenting for attending Dr. Bud Gallardo MD. This patient is a 72 year old M presenting to [facility] accompanied by a woman with a chief complaint of hematuria since this morning. Per his , there was no clotting and it was dilute with the urine. The urine has become cleared up since this morning. Patient reports diarrhea, edema in the legs, and difficulty ambulating. Patient denies fever, change in appetite, or abd pain. Pt came in on the for an obstructed hernia and it was repaired. Afterward, he wasnt urinating enough, so he was given a catheter 5 days ago. Pt was negative for a UTI at the prior visit. Pt is supposed to get his catheter removed in three days. Pt reports that he is not drinking enough water. PMHX Hernia repair. RX Flomax. I, Dr. Gallardo, personally performed the services described in this documentation as scribed in my presence and it is both accurate and complete. - History of Current Complaint Chief Complaint: EDUrogenitalProblems Time Seen by Provider: 01/20/18 23:03 Stated Complaint: BLOOD IN URINE Hx Obtained From: Patient Timing: Constant Severity: Mild Current Severity: None Pain Intensity: 0 Associated Signs and Symptoms: Positive: Hematuria - Additional Pertinent History Primary Care Physician: [id number] - Allergy/Home Medications Allergies/Adverse Reactions: Allergies Allergy/AdvReac Type Severity Reaction Status Date / Time Penicillins Allergy Severe Hives/Diff. Verified 11/17/17 12:13 Breathing/I tching PMH/Surg Hx/FS Hx/Imm Hx Endocrine/Hematology History: Denies: Hx Anticoagulant Therapy, Hx Diabetes Cardiovascular History: Reports: Hx Hypercholesterolemia, Hx Hypertension Denies: Hx Cardiac Arrest Comment Only: Other Cardiovascular Problems/Disorders - HIGH BLOOD PRESSURE Respiratory History: Reports: Hx Chronic Obstructive Pulmonary Disease (COPD) Denies: Hx Asthma GI History: Reports: Other GI Disorders - ruptured appendicitis s/p emergency appendectomy History: Denies: Hx Dialysis, Hx Renal Disease Sensory History: Denies: Hx Contacts or Glasses, Hx Hearing Aid Opthamlomology History: Denies: Hx Contacts or Glasses Neurological History: Denies: Hx CVA - Surgical History Surgery Procedure, Year, and Place: APPENDECTOMY. 01/11/2018 ventral hernia repair Hx Anesthesia Reactions: No Infectious Disease History: No Infectious Disease History: Reports: Hx Shingles Denies: Traveled Outside the [place] in Last 30 Days - Family History Known Family History: Positive: Hypertension - father - Social History Alcohol Use: None Hx Substance Use: No Substance Use Type: Reports: None Hx Tobacco Use: No Smoking Status (MU): Former Smoker Review of Systems Negative: Fever Negative: Abdominal Pain, Other - change in appetite Positive: hematuria Positive: Edema - LEs Positive: Bruising - right arm All Other Systems Reviewed And Are Negative: Yes Physical Exam - Summary Physical Exam Summary: Appearance: Well-appearing, Well-nourished, lying in bed comfortably Skin: Warm, dry, no obvious rash Eyes: sclera anicteric, no conjunctival pallor ENT: mucous membranes moist, pharynx appears normal Neck: Supple, nontender Respiratory: Clear to auscultation, no signs of respiratory distress Cardiovascular: Normal S1, S2. No murmurs. Normal distal pulses in tibial and radial bilaterally. Abdomen: Soft, nontender, normal active bowel sounds present Musculoskeletal: Normal, Strength/ROM Intact Neurological: A&Ox3, awake and alert, mentation is normal, speech is fluent and appropriate Psychiatric: affect is normal, does not appear anxious or depressed Triage Information Reviewed: Yes Vital Signs On Initial Exam: Initial Vitals Temp Pulse Resp BP Pulse Ox 97.9 F 85 15 141/82 94 01/20/18 22:45 01/20/18 22:45 01/20/18 22:45 01/20/18 22:45 01/20/18 22:45 Vital Signs Reviewed: Yes Diagnostics - Vital Signs Vital Signs Temp Pulse Resp BP Pulse Ox 01/20/18 22:45 97.9 F 85 15 141/82 94 - Laboratory Lab Statement: Any lab studies that have been ordered have been reviewed, and results considered in the medical decision making process. GIGU Course/Dx - Diagnoses Provider Diagnoses: Johnston catheter problem Discharge - Sign-Out/Discharge Documenting (check all that apply): Patient Departure - discharge - Discharge Plan Condition: Good Disposition: HOME Patient Education Materials: Johnston Catheter Placement and Care (ED) Referrals: Sesar Gay MD [Primary Care Provider] - - Attestation Statements Document Initiated by Scribe: Yes Documenting Scribe: Ben Newman Provider For Whom Scribe is Documenting (Include Credential): Bud Gallardo MD Scribe Attestation: Ben Bravo, scribed for Bud Gallardo MD on 01/20/18 at 2344.
[2018-01-20 23:30] VITALS: BP 145/81
== END 2018-01-20 23:28 | disposition home or self-care (01) ==
LOC: ED 22:42
DX: T83.9XXA Unspecified complication of genitourinary prosthetic device, implant and graft, initial encounter (principal); Y84.6 Urinary catheterization as the cause of abnormal reaction of the patient, or of later complication, without mention of misadventure at the time of the procedure; I10 Essential (primary) hypertension; E78.00 Pure hypercholesterolemia, unspecified; J44.9 Chronic obstructive pulmonary disease, unspecified; Z87.891 Personal history of nicotine dependence
CPT/HCPCS: 99282

== ENCOUNTER 2018-08-18 13:47 | Emergency (ER) | payer MEDICARE ==
[2018-08-18 14:03] VITALS: BP 128/84
[2018-08-18] MEDS ORDERED: Albuterol/Ipratropium NEB.SOL* Albuterol 2.5 MG/Ipratropium 0.5 MG 3 ML INH ONE (14:15)
--- NOTE | 2018-08-18 14:17 | UC ---
Shortness of Breath HPI - HPI Summary HPI Summary: [facility] but ran out of his medications and here to get refills. has f/u planned but feels he can't wait b/c he's starting to wheeze. - History of Current Complaint Chief Complaint: UCRespiratory Stated Complaint: SHORTNESS OF BREATHE Time Seen by Provider: 08/18/18 14:10 Hx Obtained From: Patient Aggrevating Factors: Nothing Alleviating Factors: Nothing Associated Signs & Symptoms: Positive: Cough (Nonproductive), Wheezing - Allergy/Home Medications Allergies/Adverse Reactions: Allergies Allergy/AdvReac Type Severity Reaction Status Date / Time Penicillins Allergy Severe Hives/Diff. Verified 08/18/18 13:56 Breathing/I tching PMH/Surg Hx/FS Hx/Imm Hx Cardiovascular History: Hypertension Respiratory History: COPD Other History Of: Negative For: Anticoagulant Therapy - Surgical History Surgical History: Yes Surgery Procedure, Year, and Place: APPENDECTOMY. 01/11/2018 ventral hernia repair - Family History Known Family History: Positive: Cardiac Disease, Hypertension - father - Social History Alcohol Use: None Substance Use Type: None Smoking Status (MU): Former Smoker When Did the Patient Quit Smoking/Using Tobacco: 2007 Household Exposure Type: Cigarettes - Immunization History Most Recent Influenza Vaccination: 01/12/18 Most Recent Pneumonia Vaccination: had it in the past Review of Systems All Other Systems Reviewed And Are Negative: Yes Constitutional: Negative: Fever, Fatigue Respiratory: Positive: Cough, Other - wheeze. Negative: Shortness Of Breath Cardiovascular: Positive: Negative Neurological: Negative: Headache, Weakness Physical Exam Triage Information Reviewed: Yes Appearance: Well-Appearing Vital Signs: Initial Vital Signs Temp 98.5 F 08/18/18 13:55 Pulse 79 08/18/18 13:55 Resp 20 08/18/18 13:55 BP 128/84 08/18/18 13:55 Pulse Ox 94 08/18/18 13:55 Vital Signs Reviewed: Yes Respiratory: Positive: No accessory muscle use, Wheezing - fine expiratory throughout.. Negative: Stridor Cardiovascular Exam: Normal Cardiovascular: Negative: Other: - no LE swelling Neurological: Positive: Alert Skin: Negative: Rashes Shortness of Breath Dx - Course Course Of Treatment: Mild COPD exacerbation from not having enough meds. He has f/u at the [place] and for now can rx enough meds until then. Duoneb given during visit and improved breathing. Mild wheezing on exam but improved after neb tx. - Differential Dx/Diagnosis Differential Diagnosis/HQI/PQRI: Bronchitis, CHF, COPD Exacerbation Provider Diagnosis: COPD exacerbation Discharge - Sign-Out/Discharge Documenting (check all that apply): Patient Departure All imaging exams completed and their final reports reviewed: No Studies - Discharge Plan Condition: Good Disposition: HOME Prescriptions: Albuterol/Ipratropium NEB.GARY* [Duoneb (Albuterol 2.5 MG/Ipratropium 0.5 MG)] 1 neb INH Q6H #1 pkt Albuterol/Ipratropium RESP(NF) [Combivent Respimat(NF)] 1 aer IN Q6HR 30 Days # 1 pkt Patient Education Materials: COPD (Chronic Obstructive Pulmonary Disease) (ED) Referrals: Sesar Gay MD [Primary Care Provider] - Additional Instructions: [facility]. - Billing Disposition and Condition Condition: GOOD Disposition: Home
== END 2018-08-18 14:50 | disposition home or self-care (01) ==
LOC: UCEAST 13:47
DX: J44.1 Chronic obstructive pulmonary disease with (acute) exacerbation (principal); I10 Essential (primary) hypertension; Z88.0 Allergy status to penicillin; Z87.891 Personal history of nicotine dependence
CPT/HCPCS: 99212; A9270-GY; G0463

== ENCOUNTER 2018-09-01 12:13 | Emergency (ER) | payer MEDICARE ==
[2018-09-01 12:30] VITALS: BP 120/80
--- NOTE | 2018-09-01 12:57 | UC ---
Respiratory Complaint HPI - HPI Summary HPI Summary: 73-year-old male comes in with a chief complaint of about a week's worth of worsening bronchitis and COPD symptoms. Patient chronically has shortness breath and reports that his oxygen saturation is normal in the 93-95% range due to his COPD. He does take breathing treatments at home. His sputum is worsened over the last week and is become more short of breath. He's been using his inhalers more often and they do help however it is getting more short of breath is concerned for infection. He called the [facility] and cannot get him in for at least another 5-6 days. He also has a cough gets worse when he lays down. Denies any history of congestive heart failure. Denies any chest pain except with coughing. - History of Current Complaint Chief Complaint: UCRespiratory Stated Complaint: RESP COMPLAINT Time Seen by Provider: 09/01/18 12:40 Pain Intensity: 0 - Allergies/Home Medications Allergies/Adverse Reactions: Allergies Allergy/AdvReac Type Severity Reaction Status Date / Time Penicillins Allergy Severe Hives/Diff. Verified 09/01/18 12:29 Breathing/I tching PMH/Surg Hx/FS Hx/Imm Hx Previously Healthy: Yes Endocrine History: Dyslipidemia Cardiovascular History: Hypertension Respiratory History: COPD Other History Of: Negative For: Anticoagulant Therapy - Surgical History Surgical History: Yes Surgery Procedure, Year, and Place: APPENDECTOMY. 01/11/2018 ventral hernia repair - Family History Known Family History: Positive: Cardiac Disease, Hypertension - father - Social History Alcohol Use: None Substance Use Type: None Smoking Status (MU): Former Smoker When Did the Patient Quit Smoking/Using Tobacco: 2007 Household Exposure Type: Cigarettes - Immunization History Most Recent Influenza Vaccination: 01/12/18 Most Recent Pneumonia Vaccination: had it in the past Review of Systems All Other Systems Reviewed And Are Negative: Yes Constitutional: Positive: Negative Skin: Positive: Negative Eyes: Positive: Negative ENT: Positive: Nasal Discharge, Sinus Congestion Respiratory: Positive: Shortness Of Breath, Cough, Other - SEE HPI Cardiovascular: Positive: Negative Gastrointestinal: Positive: Negative Motor: Positive: Negative Neurovascular: Positive: Negative Musculoskeletal: Positive: Edema - TRACE Neurological: Positive: Negative Psychological: Positive: Negative Is Patient Immunocompromised?: No Physical Exam Triage Information Reviewed: Yes Appearance: No Pain Distress, Well-Nourished, Ill-Appearing - MILD Vital Signs: Initial Vital Signs Temp 98.4 F 09/01/18 12:25 Pulse 96 09/01/18 12:25 Resp 18 09/01/18 12:25 BP 120/80 09/01/18 12:25 Pulse Ox 93 09/01/18 12:25 Vital Signs Reviewed: Yes Eye Exam: Normal Eyes: Positive: Conjunctiva Clear ENT: Positive: Pharyngeal erythema, Nasal congestion, Nasal drainage, TMs normal Neck: Positive: Supple Respiratory: Positive: No respiratory distress, Wheezing - B/L Cardiovascular: Positive: RRR Musculoskeletal: Positive: Strength Intact, ROM Intact, Edema @ - TRACE B/L Neurological: Positive: Alert, Muscle Tone Normal Psychological Exam: Normal Psychological: Positive: Age Appropriate Behavior Skin Exam: Normal Respiratory Course/Dx - Course Course Of Treatment: Due to bronchitis causing worsenig of COPD, will treat with ABX. [facility] Will go to [facility] Department if worse. - Differential Dx/Diagnosis Provider Diagnosis: COPD (chronic obstructive pulmonary disease) with acute bronchitis Discharge - Sign-Out/Discharge Documenting (check all that apply): Patient Departure All imaging exams completed and their final reports reviewed: No Studies - Discharge Plan Condition: Stable Disposition: HOME Prescriptions: Levofloxacin TAB* [Levaquin TAB*] 750 mg PO DAILY #10 tab predniSONE TAB* [Deltasone 20 MG TAB*] 0 mg PO DAILY #18 tab Patient Education Materials: Acute Bronchitis (ED), COPD (Chronic Obstructive Pulmonary Disease) (ED) Referrals: Sesar Gay MD [Primary Care Provider] - Additional Instructions: [facility]LLOW UP [facility]. GO TO THE EMERGENCY DEPARTMENT IF YOUR CONDITION WORSENS OR ANY QUESTIONS OR CONCERNS. - Billing Disposition and Condition Condition: STABLE Disposition: Home
== END 2018-09-01 13:03 | disposition home or self-care (01) ==
LOC: UCEAST 12:13
DX: J20.9 Acute bronchitis, unspecified (principal); J44.0 Chronic obstructive pulmonary disease with (acute) lower respiratory infection; E78.5 Hyperlipidemia, unspecified; I10 Essential (primary) hypertension; Z88.0 Allergy status to penicillin; Z87.891 Personal history of nicotine dependence
CPT/HCPCS: 99212; G0463

== ENCOUNTER → 2018-09-21 11:03 | Emergency (ER) | payer MEDICARE ==
[~2018-09-21 11:03] MED LIST: Albuterol/Ipratropium NEB.SOL* Albuterol 2.5 MG/Ipratropium 0.5 MG 3 ML INH ONE; DOXYcycline CAP(*) 100 MG PO ONE; predniSONE TAB* 20 MG PO ONE
--- NOTE | 2018-09-21 11:21 | ED ---
Shortness of Breath - HPI Summary HPI Summary: A 73 y/o M presents to ED with c/o worsening labored breathing onset yesterday. Alleviating factors: sitting up. Associated sx: productive cough with yellow phlegm, sinus and chest congestion, chest tightness, fatigue, bilat calf pain. Denies n/v. He has inhalers at home, but no nebulizer. (later states he does have nebulizer, but no medication). He's been using his Combivent inhaler approx every 1.5-2 hours, but is supposed to only use it every 3-4 hours. One month ago, he was taking Levaquin and Prednisone. PMHx: SOB, chronic bronchitis , HTN, HLD. Denies prior [place], DVT. Pt is seen at the [place] [facility]. He denies recent travel, prolonged sitting. Former smoker, quit 15 years ago. Medications discussed. Vitals at bedside: same as triage. Pt seen in [facility] at 11:16. Home Medications Medication Instructions Recorded Confirmed Type Atorvastatin* [Lipitor 10 MG*] 10 mg PO DAILY 09/26/17 08/18/18 History Lisinopril TAB* [Prinivil TAB 10 10 mg PO DAILY 09/26/17 08/18/18 History MG*] Vitamin D TAB* 1,000 units PO DAILY 01/11/18 08/18/18 History Fluticasone-Salmeterol 100-50* 1 puff INH BID 03/15/18 08/18/18 History [Advair Diskus 100-50*] Tamsulosin CAP* [Flomax CAP*] 0.4 mg PO BID 03/15/18 08/18/18 History Albuterol/Ipratropium NEB.GARY* 1 neb INH Q6H #1 pkt 08/18/18 Rx [Duoneb (Albuterol 2.5 MG/Ipratropium 0.5 MG)] Albuterol/Ipratropium RESP(NF) 1 aer IN Q6HR 30 Days #1 pkt 08/18/18 Rx [Combivent Respimat(NF)] Levofloxacin TAB* [Levaquin TAB*] 750 mg PO DAILY #10 tab 09/01/18 Rx predniSONE TAB* [Deltasone 20 MG 0 mg PO DAILY #18 tab 09/01/18 Rx TAB*] - History of Current Complaint Time Seen by Provider: 09/21/18 11:13 Hx Obtained From: Patient Onset/Duration: Sudden Onset, Lasting Hours - yesterday, Still Present Timing: Constant Current Severity: Moderate Dyspnea At: Rest Aggrevating Factors: Nothing Alleviating Factors: Upright Position Associated Signs & Symptoms: Cough (Productive) - yellow sputum and fatigue, Chest Pain w/Cough - "tightness", Nasal Congestion, Calf Pain/Swelling - bilat Related History: Obesity - Allergy/Home Medications Allergies/Adverse Reactions: Allergies Allergy/AdvReac Type Severity Reaction Status Date / Time Penicillins Allergy Severe Hives/Diff. Verified 09/01/18 12:29 Breathing/I tching Home Medications: Home Medications Albuterol/Ipratropium NEB.GARY* [Duoneb (Albuterol 2.5 MG/Ipratropium 0.5 MG)] 1 neb INH Q6H PRN 09/21/18 [History Confirmed 09/21/18] Albuterol/Ipratropium RESP(NF) [Combivent Respimat(NF)] 1 puff INH Q6HR [History Confirmed 09/21/18] Cholecalciferol TAB* [Vitamin D TAB*] 1,000 unit PO DAILY 09/21/18 [History Confirmed 09/21/18] PMH/Surg Hx/FS Hx/Imm Hx Previously Healthy: No Endocrine/Hematology History: Denies: Hx Anticoagulant Therapy, Hx Diabetes Cardiovascular History: Reports: Hx Hypercholesterolemia, Hx Hypertension Denies: Hx Cardiac Arrest, Hx Myocardial Infarction Comment Only: Other Cardiovascular Problems/Disorders - HIGH BLOOD PRESSURE Respiratory History: Reports: Hx Chronic Obstructive Pulmonary Disease (COPD) Denies: Hx Asthma GI History: Reports: Other GI Disorders - ruptured appendicitis s/p emergency appendectomy History: Denies: Hx Dialysis, Hx Renal Disease Sensory History: Denies: Hx Contacts or Glasses, Hx Hearing Aid Opthamlomology History: Denies: Hx Contacts or Glasses Neurological History: Denies: Hx CVA - Surgical History Surgery Procedure, Year, and Place: APPENDECTOMY. 01/11/2018 ventral hernia repair Hx Anesthesia Reactions: No Infectious Disease History: Yes Infectious Disease History: Reports: Hx Shingles Denies: Traveled Outside the [place] in Last 30 Days - Family History Known Family History: Positive: Cardiac Disease, Hypertension - father - Social History Occupation: Retired Lives: With Family Alcohol Use: None Alcohol Amount: Quit. Hx Substance Use: No Substance Use Type: Reports: None Hx Tobacco Use: No Smoking Status (MU): Former Smoker - quit 15 years ago Review of Systems Positive: Fatigue Positive: Other - pos: sinus and chest congestion Positive: Chest Pain - "tightness" Positive: Shortness Of Breath, Cough - productive of yellow sputum Negative: Vomiting, Nausea Positive: no symptoms reported Musculoskeletal: Other - pos: bilat calf pain Skin: Negative Neurological: Negative Psychological: Normal All Other Systems Reviewed And Are Negative: Yes Physical Exam - Summary Physical Exam Summary: Appearance: Ill-appearing, no pain distress unless coughing, obese Skin: Warm, color reflects adequate perfusion, diaphoretic Head: Normal Head/Face inspection, atraumatic Eyes: Conjunctiva clear ENT: Normal inspection Neck: Supple, no nodes, no JVD Respiratory: Coarse rhonchi, deep congestive cough, wheezes Cardio: RRR, No murmur, pulses normal, brisk capillary refill Abdomen: Soft, nontender Bowel sounds: Present Musculoskeletal: Strength Intact/ROM intact, no calf tenderness, no edema. Psychological: Normal Neuro: Alert, muscle tone normal, no focal deficit Triage Information Reviewed: Yes Vital Signs On Initial Exam: Initial Vitals Temp Pulse Resp BP Pulse Ox 97.3 F 93 20 144/77 92 09/21/18 11:11 09/21/18 11:11 09/21/18 11:11 09/21/18 11:11 09/21/18 11:11 Vital Signs Reviewed: Yes Diagnostics - Vital Signs Vital Signs Temp Pulse Resp BP Pulse Ox 09/21/18 11:11 97.3 F 93 20 144/77 92 - Laboratory Result Diagrams: 09/21/18 11:38 09/21/18 11:38 Lab Statement: Any lab studies that have been ordered have been reviewed, and results considered in the medical decision making process. - Radiology CXR Radiology Interpretation Completed By: Radiologist Summary of Radiographic Findings: IMPRESSION: COPD with bibasilar atelectasis and likely chronic pleural changes. ED provider has reviewed this report. - EKG 1107 Cardiac Rate: NL - 94 bpm EKG Rhythm: Sinus Rhythm ST Segment: Non-Specific Ectopy: None EKG Comparison: No Significant Change - from EKG on 03/05/18. Summary of EKG Findings: An EKG at 11:07 reveals NSR at 94 bpm with nml ESMER CT , nml QTc, and nml axis. No acute changes. Low voltage. EKG read and interpreted by ED physician. Re-Evaluation - Re-Evaluation 1 Re-Evaluation Time: 16:13 Change: Improved Comment: Discussing results with patient and family, and plans for discharge. They are all agreeable with this plan. Patient has faint expiratory wheezes, much improved. Patient also states he is scheduled to see training lead at [facility] on October 18, 2018. Course/Dx - Course Course Of Treatment: Pt is a 73 y/o M presenting with worsening labored breathing onset yesterday. Associated sx: productive cough with yellow phlegm, sinus and chest congestion, chest tightness, fatigue, bilat calf pain. He has inhalers at home, but no nebulizer.(later stated he did have nebulizer, just no medication for it). PMHx: SOB, chronic bronchitis, HTN, HLD. Lab work shows WBC : 10.9, INR: 1.10, total creatine kinase: 295, CRP: 41.16. Repeat troponin remained at 0.00, three hours after initial. Neg d dimer. CXR shows COPD with bibasilar atelectasis and likely chronic pleural changes. An EKG at 11:07 reveals NSR at 94 bpm with nml ESMER CT, nml QTc, and nml axis. No acute changes. Low voltage. No significant change from EKG on 03/05/18. In the ED pt was given two duoneb treatments with some improvement, however he was not totally wheeze-free upon discharge. He did feel better and was not SOB at rest. Pt was also given his first doses of doxycycline and prednisone in the ED. Will discharge patient home with Doxycycline and Prednisone, and duoneb medication for his nebulizer. Pt stated that "doxycycline doesn't work for me", however Dr. Rene is reluctant to prescribe Levaquin for pt due to black box warning associated with it, and the fact that pt was just on Levaquin. Pt is advised to take the doxycycline until he sees Dr. Gay, and discuss antibiotic choice and length of steroid use with Dr. Gay. Pt is to follow up with Dr. Gay, PCP. Patient also states he is scheduled to see training lead at [facility] on October 18, 2018 and he is advised to keep this, so that he can get further treatment for his COPD. Allergies noted. Pt medications reviewed this visit. Nurses note reviewed. - Diagnoses Differential Diagnosis/HQI/PQRI: Positive: Asthma, Bronchitis, COPD Exacerbation , [place], Pneumonia, Pulmonary Embolism Provider Diagnoses: COPD exacerbation, Acute bronchitis Discharge - Sign-Out/Discharge Documenting (check all that apply): Patient Departure - D/C home Patient Received Moderate/Deep Sedation with Procedure: No - Discharge Plan Condition: Stable Disposition: HOME Prescriptions: Albuterol/Ipratropium NEB.GARY* [Duoneb (Albuterol 2.5 MG/Ipratropium 0.5 MG)] 1 neb INH Q4H PRN #50 neb.gary PRN Reason: wheezing DOXYcycline CAP(*) [DOXYcycline 100MG CAP(*)] 100 mg PO BID #20 cap predniSONE [Prednisone 20 MG TAB] 40 mg PO QAM #10 tablet Patient Education Materials: Acute Bronchitis (ED), COPD (Chronic Obstructive Pulmonary Disease) (ED) Referrals: Sesar Gay MD [Primary Care Provider] - 2 Days Additional Instructions: We have diagnosed you with acute bronchitis and chronic COPD. We've given you a copy of your chest x-ray which does not show pneumonia. We gave you your first dose of doxycycline and prednisone while you were in the emergency room. We have also sent prescriptions for both of these medications to your pharmacy. You should take another dose of doxycycline tonight before bed. You should start the prednisone again tomorrow morning and take 40 mg daily for the next 5 days. You should continue your Combivent inhaler. We have given you two DuoNeb treatments while you were in the emergency department with improvement of your wheezing. We also did labs to evaluate your heart for any possible cardiac cause of your symptoms. The labs did not show any damage to your heart , with 2 negative troponin levels. Please return to the emergency department if you have any new or worsening symptoms. - Billing Disposition and Condition Condition: STABLE Disposition: Home - Attestation Statements Document Initiated by Scribe: Yes Documenting Scribe: [facility] Provider For Whom Scribe is Documenting (Include Credential): Dr. Leticia Rene MD Scribe Attestation: I, Miguel Wade, scribed for Dr. Leticia Rene MD on 09/24/18 at 1725. Scribe Documentation Reviewed: Yes Provider Attestation: The documentation as recorded by the Miguel cruz accurately reflects the service I personally performed and the decisions made by me, Dr. Leticia Rene MD Status of Scribe Document: Viewed
[2018-09-21 11:45] LABS: ABS Basophils 0.1 10^3/ul (0-0.2); ABS Eosinophils 0.1 10^3/ul (0-0.6); ABS Lymphocytes 0.8 10^3/ul (1.0-4.8); ABS Monocytes 0.9 10^3/ul (0-0.8); Eosinophil % 1.1 %; Hematocrit 49 % (42-52); Hemoglobin 16.6 g/dL (14.0-18.0); Lymphocyte % 7.2 %; Mean Corpuscular HGB Conc 34 g/dL (31-36); Mean Corpuscular Hemoglobin 31 pg (27-31); Mean Corpuscular Volume 90 fL (80-94); Mean Platelet Volume 8.6 fL (7.4-10.4); Platelet Count 179 10^3/uL (150-450); Red Blood Count 5.42 10^6 /uL (4.18-5.48); Red Cell Distribution Width 14 % (10.5-15); White Blood Count 10.9 10^3/uL (3.5-10.8)
[2018-09-21 12:08] LABS: C Reactive Protein 41.16 mg/L (<8.01)
[2018-09-21 12:09] LABS: INR 1.1 (0.82-1.09)
[2018-09-21 12:10] LABS: Albumin 4.5 g/dL (3.2-5.2); Albumin/Globulin Ratio 1.9 (1-3); Calcium 9.7 mg/dL (8.6-10.3); EGFR African American 95.2 (>60); EGFR Non-African American 78.7 (>60); Globulin 2.4 g/dL (2-4); Potassium 4.7 mmol/L (3.5-5.0); Total Bilirubin 0.6 mg/dL (0.2-1.0); Total Protein 6.9 g/dL (6.4-8.9)
[2018-09-21 12:11] LABS: Activated Partial Thrombo Time 29.9 seconds (26.0-36.3)
[2018-09-21 12:12] LABS: CKMB ng/mL 5.7 ng/mL (0.6-6.3)
[2018-09-21 16:47] VITALS: BP 137/83
== END | disposition home or self-care (01) ==
LOC: ED 11:03
DX: J44.1 Chronic obstructive pulmonary disease with (acute) exacerbation (principal); J20.9 Acute bronchitis, unspecified; J98.11 Atelectasis; M79.662 Pain in left lower leg; M79.661 Pain in right lower leg; E78.00 Pure hypercholesterolemia, unspecified; I10 Essential (primary) hypertension; Z88.0 Allergy status to penicillin; Z87.891 Personal history of nicotine dependence
CPT/HCPCS: 36415; 71046; 80053; 82550; 82553; 83880; 84484; 85025; 85379; 85610; 85730; 86140; 93005; 99284; A9270-GY; J7512

== ENCOUNTER 2018-10-08 11:29 | Emergency (ER) | payer MEDICARE ==
[2018-10-08 11:40] VITALS: BP 121/80
[2018-10-08] MEDS ORDERED: Ipratropium 0.5MG/2.5ML NEB* 0.5 MG/2.5 ML NEB.SOLN INH ONE (12:15)
[2018-10-08] MEDS ORDERED: Albuterol 2.5 MG/3 ML NEB.SOL* (0.083%) INH ONE (12:15)
[2018-10-08] MEDS ORDERED: predniSONE TAB* 20 MG PO ONE (12:15)
--- NOTE | 2018-10-08 12:25 | UC ---
Respiratory Complaint HPI - HPI Summary HPI Summary: The patient is a 73-year-old male with a history of COPD that uses supplemental oxygen at night, who presents here with worsening wheezing and dyspnea 2-3 days. He recently finished a course of doxycycline. He was also on a five-day course of prednisone. He has a dry cough currently. He is wondering if some of his symptoms may be related to allergies. He is due to see a patent law specialist on the of this month. He is a patient at the [facility] clinic in [place] and states it is hard to get a timely follow-up appointment there. He has not been able to see his doctor since his last ER visit. He denies any chest pain. He states that his normal room air gases between 93 and 96%. - History of Current Complaint Chief Complaint: UCGeneralIllness Stated Complaint: CHEST CONGESTION Time Seen by Provider: 10/08/18 12:03 Hx Obtained From: Patient Onset/Duration: Gradual Onset, Lasting Days Timing: Constant Severity Initially: Mild Severity Currently: Moderate Pain Intensity: 0 Pain Scale Used: 0-10 Numeric Character: Cough: Nonproductive Aggravating Factors: Exertion, Deep Breaths Alleviating Factors: Bronchodilator Associated Signs And Symptoms: Positive: Wheezing, Nasal Congestion - Allergies/Home Medications Allergies/Adverse Reactions: Allergies Allergy/AdvReac Type Severity Reaction Status Date / Time Penicillins Allergy Severe Hives/Diff. Verified 10/08/18 11:39 Breathing/I tching PMH/Surg Hx/FS Hx/Imm Hx Previously Healthy: Yes Endocrine History: Dyslipidemia Cardiovascular History: Hypertension Respiratory History: COPD Other History Of: Negative For: Anticoagulant Therapy - Surgical History Surgical History: Yes Surgery Procedure, Year, and Place: APPENDECTOMY. 01/11/2018 ventral hernia repair - Family History Known Family History: Positive: Cardiac Disease, Hypertension - father, Respiratory Disease - Social History Alcohol Use: None Alcohol Amount: Quit. Substance Use Type: None Smoking Status (MU): Former Smoker When Did the Patient Quit Smoking/Using Tobacco: 10+ years Household Exposure Type: Cigarettes - Immunization History Most Recent Influenza Vaccination: 01/12/18 Most Recent Pneumonia Vaccination: had it in the past Review of Systems All Other Systems Reviewed And Are Negative: Yes Constitutional: Positive: Negative Skin: Positive: Negative Eyes: Positive: Negative ENT: Positive: Sinus Congestion Respiratory: Positive: Cough, Other - wheezing Cardiovascular: Positive: Negative Gastrointestinal: Positive: Negative Genitourinary: Positive: Negative Motor: Positive: Negative Neurovascular: Positive: Negative Musculoskeletal: Positive: Negative Neurological: Positive: Negative Psychological: Positive: Negative Physical Exam Triage Information Reviewed: Yes Appearance: Well-Appearing, No Pain Distress, Well-Nourished Vital Signs: Initial Vital Signs Temp 98.5 F 10/08/18 11:30 Pulse 91 10/08/18 11:30 Resp 22 10/08/18 11:30 BP 121/80 10/08/18 11:30 Pulse Ox 93 10/08/18 11:30 Vital Signs Reviewed: Yes ENT: Positive: Hearing grossly normal, Nasal congestion, Uvula midline. Negative: Nasal drainage, Tonsillar swelling, Tonsillar exudate, Hoarse voice Neck: Positive: Supple, Nontender, No Lymphadenopathy Respiratory: Positive: No respiratory distress, No accessory muscle use, Wheezing Cardiovascular: Positive: RRR, No Murmur Musculoskeletal: Positive: No Edema Neurological: Positive: Alert Psychological Exam: Normal Skin Exam: Normal Re-Evaluation - Re-Evaluation Second Eval Re-Evaluation Time: 13:16 Change: Improved - still wheezing, better air movement Respiratory Course/Dx - Differential Dx/Diagnosis Provider Diagnosis: Acute exacerbation of chronic obstructive airways disease Discharge - Sign-Out/Discharge Documenting (check all that apply): Patient Departure All imaging exams completed and their final reports reviewed: No Studies - Discharge Plan Condition: Stable Disposition: HOME Prescriptions: predniSONE [Deltasone 20 MG TAB] 20 - 40 mg PO DAILY #15 tab Patient Education Materials: Bronchospasm (ED) Referrals: Sesar Gay MD [Primary Care Provider] - As Soon As Possible Additional Instructions: At this point I don't think you need to be on antibiotics , however, if not improved in a few days get rechecked To ER for worsening symptoms see patent law specialist as planned - Billing Disposition and Condition Condition: STABLE Disposition: Home
== END 2018-10-08 13:22 | disposition home or self-care (01) ==
LOC: UCEAST 11:29
DX: J44.1 Chronic obstructive pulmonary disease with (acute) exacerbation (principal); E78.5 Hyperlipidemia, unspecified; I10 Essential (primary) hypertension; Z87.891 Personal history of nicotine dependence; Z99.81 Dependence on supplemental oxygen; Z88.0 Allergy status to penicillin
CPT/HCPCS: 99212; G0463; J7512

== ENCOUNTER 2021-05-03 11:31 | Inpatient (IN) ==
[2021-05-03] MEDS ORDERED: methylPREDNISolone 125 mg 2 ML VIAL IV ONE (11:51)
[2021-05-03] MEDS ORDERED: Albuterol HFA INHALER 8 gm MDI INH ONE (11:51)
[2021-05-03] MEDS ORDERED: NS 0.9% 1000 ml BAG 1,000 ML IV ONE (11:51)
[2021-05-03] MEDS ORDERED: DOXYcycline 100 MG in NS 0.9% 250 ml 250 ML IVPB ONE (11:51)
[2021-05-03 13:22] LABS: ABS Lymphocytes 0.3 10^3/ul (1.0-4.8); ABS Monocytes 0.3 10^3/ul (0-0.8); ABS Neutrophils 3.3 10^3/ul (1.5-7.7); Hematocrit 46 % (42-52); Hemoglobin 15.9 g/dL (14.0-18.0); Lymphocyte % 7.1 %; Mean Corpuscular HGB Conc 34 g/dL (31-36); Mean Corpuscular Hemoglobin 31 pg (27-31); Mean Corpuscular Volume 90 fL (80-94); Mean Platelet Volume 8.6 fL (7.4-10.4); Platelet Count 109 10^3/uL (150-450); Red Blood Count 5.15 10^6 /uL (4.18-5.48); Red Cell Distribution Width 13 % (10-15); White Blood Count 3.9 10^3/uL (3.5-10.8)
[2021-05-03 13:31] LABS: Activated Partial Thrombo Time 28.5 seconds (26.0-38.0); INR 1.18 (0.86-1.15)
[2021-05-03 13:34] LABS: Calcium 8.5 mg/dL (8.6-10.3); Magnesium 1.7 mg/dL (1.9-2.7); Potassium 4.1 mmol/L (3.5-5.0); Total Bilirubin 0.5 mg/dL (0.2-1.0)
[2021-05-03 13:38] LABS: Troponin I 0.01 ng/mL (<0.03)
[2021-05-03 13:40] LABS: Albumin/Globulin Ratio 1.6 (1-3); C Reactive Protein 73.23 mg/L (<8.01); Globulin 2.5 g/dL (2-4); Total Protein 6.5 g/dL (6.4-8.9); eGFR CKD-EPI 81.4 (>60)
[2021-05-03] MEDS ORDERED: Magnesium Sulfate 2 gm BAG 2 GM/50 ML BAG IVPB ONE (13:48)
[2021-05-03] MEDS ORDERED: Iohexol 350 (CONTRAST) 500 ML MDV IV ONE (14:20)
[2021-05-03 14:51] LABS: Urine Appearance Cloudy; Urine Bilirubin Negative (Negative); Urine Blood 1+ (Negative); Urine Color Yellow; Urine Glucose Negative (Negative); Urine Ketones 1+ (Negative); Urine Nitrite Negative (Negative); Urine Protein 2+(100 mg/dL) (Negative); Urine Specific Gravity 1.024 (1.002-1.030); Urine Urobilinogen Negative (Negative)
[2021-05-03 14:55] LABS: Urine Bacteria Absent (Absent); Urine Red Blood Cell Trace(0-2/hpf) (Absent); Urine Squamous Epithelial Cell Present (Absent); Urine White Blood Cell Absent (Absent)
[2021-05-03] MEDS ORDERED: Remdesivir 100 mg Vial 200 MG in NS 0.9% 250 ml 210 ML IV ONE (18:00)
[2021-05-03] MEDS: Enoxaparin 40 MG/0.4 ML SYR SUBCUT SCH (18:42)
[2021-05-03 19:08] LABS: INR 1.16 (0.86-1.15)
[2021-05-04] MEDS: methylPREDNISolone SOD 40 mg/ml 1 ml VIAL IV SCH ×2 (07:01→17:28)
[2021-05-04 07:14] LABS: ABS Lymphocytes 0.3 10^3/ul (1.0-4.8); ABS Monocytes 0.3 10^3/ul (0-0.8); ABS Neutrophils 4.1 10^3/ul (1.5-7.7); Hematocrit 44 % (42-52); Hemoglobin 14.9 g/dL (14.0-18.0); Lymphocyte % 6.8 %; Mean Corpuscular HGB Conc 34 g/dL (31-36); Mean Corpuscular Hemoglobin 31 pg (27-31); Mean Corpuscular Volume 90 fL (80-94); Mean Platelet Volume 8.9 fL (7.4-10.4); Platelet Count 120 10^3/uL (150-450); Red Blood Count 4.85 10^6 /uL (4.18-5.48); Red Cell Distribution Width 13 % (10-15); White Blood Count 4.7 10^3/uL (3.5-10.8)
[2021-05-04 07:19] LABS: INR 1.11 (0.86-1.15)
[2021-05-04 07:33] LABS: Albumin 3.5 g/dL (3.2-5.2); Albumin/Globulin Ratio 1.6 (1-3); Calcium 8.1 mg/dL (8.6-10.3); Globulin 2.2 g/dL (2-4); Potassium 4.5 mmol/L (3.5-5.0); Total Bilirubin 0.4 mg/dL (0.2-1.0); Total Protein 5.7 g/dL (6.4-8.9)
[2021-05-04] MEDS ORDERED: SPIRIVA Respimat (tiotropium) 2.5 mcg/inh Inhaler INH PRN (08:31)
[2021-05-04] MEDS: Mometasone/Formoter 200/5 MDI INH SCH (09:24)
[2021-05-04] MEDS: Cholecalciferol (VIT D3) 1,000 unit TAB PO SCH (09:35)
[2021-05-04] MEDS: Enoxaparin 40 MG/0.4 ML SYR SUBCUT SCH (21:48)
[2021-05-04] MEDS: Remdesivir 100 mg Vial 100 MG in NS 0.9% 250 ml 230 ML IV SCH (21:49)
[2021-05-05 07:05] LABS: Hematocrit 42 % (42-52); Hemoglobin 14.6 g/dL (14.0-18.0); Mean Corpuscular HGB Conc 35 g/dL (31-36); Mean Corpuscular Hemoglobin 31 pg (27-31); Mean Corpuscular Volume 90 fL (80-94); Mean Platelet Volume 9.1 fL (7.4-10.4); Platelet Count 132 10^3/uL (150-450); Red Cell Distribution Width 13 % (10-15); White Blood Count 7.9 10^3/uL (3.5-10.8)
[2021-05-05 07:12] LABS: INR 1.12 (0.86-1.15)
[2021-05-05 07:27] LABS: Albumin 3.5 g/dL (3.2-5.2); Albumin/Globulin Ratio 1.8 (1-3); Calcium 8.3 mg/dL (8.6-10.3); Potassium 4.3 mmol/L (3.5-5.0); Total Bilirubin 0.4 mg/dL (0.2-1.0); Total Protein 5.5 g/dL (6.4-8.9); eGFR CKD-EPI 92.6 (>60)
[2021-05-05] MEDS: Cholecalciferol (VIT D3) 1,000 unit TAB PO SCH (08:45)
[2021-05-05] MEDS: Mometasone/Formoter 200/5 MDI INH SCH (09:58)
[2021-05-05] MEDS: Albuterol HFA INHALER 8 gm MDI INH PRN (11:59)
[2021-05-05] MEDS: DOXYcycline 100 MG in NS 0.9% 250 ml 250 ML IVPB SCH (19:56)
[2021-05-05] MEDS: Remdesivir 100 mg Vial 100 MG in NS 0.9% 250 ml 230 ML IV SCH (22:39)
[2021-05-05] MEDS: Enoxaparin 40 MG/0.4 ML SYR SUBCUT SCH (22:39)
[2021-05-06 04:56] LABS: Hematocrit 42 % (42-52); Mean Corpuscular HGB Conc 34 g/dL (31-36); Mean Corpuscular Hemoglobin 31 pg (27-31); Mean Corpuscular Volume 91 fL (80-94); Platelet Count 146 10^3/uL (150-450); Red Blood Count 4.57 10^6 /uL (4.18-5.48); Red Cell Distribution Width 13 % (10-15); White Blood Count 7.7 10^3/uL (3.5-10.8)
[2021-05-06 05:13] LABS: Albumin 3.3 g/dL (3.2-5.2); Albumin/Globulin Ratio 1.7 (1-3); Calcium 8.1 mg/dL (8.6-10.3); Globulin 1.9 g/dL (2-4); Potassium 4.1 mmol/L (3.5-5.0); Total Bilirubin 0.4 mg/dL (0.2-1.0); Total Protein 5.2 g/dL (6.4-8.9); eGFR CKD-EPI 92.6 (>60)
[2021-05-06 05:19] LABS: INR 1.15 (0.86-1.15)
[2021-05-06] MEDS: Cholecalciferol (VIT D3) 1,000 unit TAB PO SCH (08:10)
[2021-05-06] MEDS: Mometasone/Formoter 200/5 MDI INH SCH (10:21)
[2021-05-06] MEDS: DOXYcycline 100 MG in NS 0.9% 250 ml 250 ML IVPB SCH ×2 (11:04→20:19)
[2021-05-06] MEDS: Enoxaparin 40 MG/0.4 ML SYR SUBCUT SCH (21:37)
[2021-05-06] MEDS: Remdesivir 100 mg Vial 100 MG in NS 0.9% 250 ml 230 ML IV SCH (21:38)
[2021-05-07 07:12] LABS: INR 1.13 (0.86-1.15)
[2021-05-07 07:19] LABS: Albumin 3.2 g/dL (3.2-5.2); Albumin/Globulin Ratio 1.8 (1-3); Calcium 8.1 mg/dL (8.6-10.3); Globulin 1.8 g/dL (2-4); Total Bilirubin 0.5 mg/dL (0.2-1.0); eGFR CKD-EPI 96.9 (>60)
[2021-05-07] MEDS: Mometasone/Formoter 200/5 MDI INH SCH (08:13)
[2021-05-07] MEDS ORDERED: CALCIUM GLUCONATE 1GM/50ML NS 1 GM/50 ML BAG IV ONE (08:54)
[2021-05-07] MEDS: DOXYcycline 100 MG in NS 0.9% 250 ml 250 ML IVPB SCH ×2 (09:52→22:29)
[2021-05-07] MEDS: Cholecalciferol (VIT D3) 1,000 unit TAB PO SCH (09:53)
[2021-05-07] MEDS: Albuterol HFA INHALER 8 gm MDI INH PRN (22:21)
[2021-05-07] MEDS: Enoxaparin 40 MG/0.4 ML SYR SUBCUT SCH (22:26)
[2021-05-07] MEDS: Remdesivir 100 mg Vial 100 MG in NS 0.9% 250 ml 230 ML IV SCH (23:53)
[2021-05-08 07:57] LABS: ABS Lymphocytes 0.8 10^3/ul (1.0-4.8); ABS Monocytes 0.6 10^3/ul (0-0.8); ABS Neutrophils 5.7 10^3/ul (1.5-7.7); Eosinophil % 0.1 %; Hematocrit 42 % (42-52); Hemoglobin 14.4 g/dL (14.0-18.0); Lymphocyte % 11.3 %; Mean Corpuscular HGB Conc 35 g/dL (31-36); Mean Corpuscular Hemoglobin 31 pg (27-31); Mean Corpuscular Volume 89 fL (80-94); Mean Platelet Volume 8.7 fL (7.4-10.4); Nucleated Red Blood Cells % 0.1; Platelet Count 164 10^3/uL (150-450); Red Blood Count 4.67 10^6 /uL (4.18-5.48); Red Cell Distribution Width 13 % (10-15); White Blood Count 7.1 10^3/uL (3.5-10.8)
[2021-05-08 08:00] LABS: INR 1.19 (0.86-1.15)
[2021-05-08 08:12] LABS: Potassium 3.8 mmol/L (3.5-5.0)
[2021-05-08] MEDS: Cholecalciferol (VIT D3) 1,000 unit TAB PO SCH (08:12)
[2021-05-08 08:13] LABS: Albumin 3.3 g/dL (3.2-5.2); Albumin/Globulin Ratio 1.7 (1-3); Calcium 8.1 mg/dL (8.6-10.3); Magnesium 1.9 mg/dL (1.9-2.7); Total Bilirubin 0.6 mg/dL (0.2-1.0); Total Protein 5.3 g/dL (6.4-8.9); eGFR CKD-EPI 90.3 (>60)
[2021-05-08] MEDS: DOXYcycline 100 MG in NS 0.9% 250 ml 250 ML IVPB SCH ×2 (08:13→23:45)
[2021-05-08] MEDS: Albuterol HFA INHALER 8 gm MDI INH PRN ×2 (08:35→13:57)
[2021-05-08] MEDS: Mometasone/Formoter 200/5 MDI INH SCH (08:36)
[2021-05-08] MEDS: SPIRIVA Respimat (tiotropium) 2.5 mcg/inh Inhaler INH SCH (12:28)
[2021-05-08] MEDS: Enoxaparin 40 MG/0.4 ML SYR SUBCUT SCH (23:44)
[2021-05-09] MEDS: Albuterol HFA INHALER 8 gm MDI INH PRN ×2 (07:39→09:10)
[2021-05-09] MEDS: Mometasone/Formoter 200/5 MDI INH SCH (09:09)
[2021-05-09] MEDS: SPIRIVA Respimat (tiotropium) 2.5 mcg/inh Inhaler INH SCH (09:10)
[2021-05-09] MEDS: DOXYcycline 100 MG in NS 0.9% 250 ml 250 ML IVPB SCH ×2 (09:22→23:50)
[2021-05-09] MEDS: Cholecalciferol (VIT D3) 1,000 unit TAB PO SCH (09:23)
[2021-05-09 11:04] LABS: ABS Lymphocytes 0.8 10^3/ul (1.0-4.8); ABS Monocytes 0.7 10^3/ul (0-0.8); ABS Neutrophils 6.7 10^3/ul (1.5-7.7); Eosinophil % 0.4 %; Hematocrit 43 % (42-52); Hemoglobin 14.8 g/dL (14.0-18.0); Lymphocyte % 9.9 %; Mean Corpuscular HGB Conc 34 g/dL (31-36); Mean Corpuscular Hemoglobin 31 pg (27-31); Mean Corpuscular Volume 89 fL (80-94); Mean Platelet Volume 8.6 fL (7.4-10.4); Platelet Count 188 10^3/uL (150-450); Red Blood Count 4.84 10^6 /uL (4.18-5.48); Red Cell Distribution Width 13 % (10-15); White Blood Count 8.2 10^3/uL (3.5-10.8)
[2021-05-09 11:20] LABS: Albumin 3.2 g/dL (3.2-5.2); Albumin/Globulin Ratio 1.8 (1-3); Globulin 1.8 g/dL (2-4); Magnesium 1.8 mg/dL (1.9-2.7); Potassium 3.5 mmol/L (3.5-5.0); Total Bilirubin 0.7 mg/dL (0.2-1.0); eGFR CKD-EPI 94.9 (>60)
[2021-05-09] MEDS: Enoxaparin 40 MG/0.4 ML SYR SUBCUT SCH (23:56)
[2021-05-10] MEDS ORDERED: Hyaluronidase HUMAN 15 UNIT in Sodium Chloride 0.9% 0.9 ML INTRADERM ONE (00:28)
[2021-05-10 06:56] LABS: ABS Monocytes 0.6 10^3/ul (0-0.8); Eosinophil % 0.3 %; Hematocrit 44 % (42-52); Hemoglobin 15.3 g/dL (14.0-18.0); Lymphocyte % 11.6 %; Mean Corpuscular HGB Conc 35 g/dL (31-36); Mean Corpuscular Hemoglobin 31 pg (27-31); Mean Corpuscular Volume 89 fL (80-94); Mean Platelet Volume 8.4 fL (7.4-10.4); Platelet Count 209 10^3/uL (150-450); Red Blood Count 4.97 10^6 /uL (4.18-5.48); Red Cell Distribution Width 13 % (10-15); White Blood Count 8.6 10^3/uL (3.5-10.8)
[2021-05-10 07:28] LABS: Albumin 3.4 g/dL (3.2-5.2); Albumin/Globulin Ratio 1.8 (1-3); Calcium 8.2 mg/dL (8.6-10.3); Globulin 1.9 g/dL (2-4); Magnesium 1.8 mg/dL (1.9-2.7); Phosphorus 3.8 mg/dL (2.5-5.0); Potassium 3.7 mmol/L (3.5-5.0); Total Bilirubin 0.8 mg/dL (0.2-1.0); Total Protein 5.3 g/dL (6.4-8.9); eGFR CKD-EPI 93.7 (>60)
[2021-05-10] MEDS: SPIRIVA Respimat (tiotropium) 2.5 mcg/inh Inhaler INH SCH (08:15)
[2021-05-10] MEDS: Albuterol HFA INHALER 8 gm MDI INH PRN (08:15)
[2021-05-10] MEDS: Mometasone/Formoter 200/5 MDI INH SCH (08:15)
[2021-05-10] MEDS: Cholecalciferol (VIT D3) 1,000 unit TAB PO SCH (09:05)
[2021-05-10] MEDS: DOXYcycline 100 MG in NS 0.9% 250 ml 250 ML IVPB SCH ×2 (09:05→23:20)
[2021-05-10] MEDS ORDERED: Magnesium Sulfate 2 gm BAG 2 GM/50 ML BAG IVPB ONE (09:15)
[2021-05-10] MEDS ORDERED: Potassium Chlor 10 meq TAB PO ONE (09:15)
[2021-05-10] MEDS: Enoxaparin 40 MG/0.4 ML SYR SUBCUT SCH (23:17)
[2021-05-11 06:24] LABS: Hematocrit 45 % (42-52); Hemoglobin 15.4 g/dL (14.0-18.0); Mean Corpuscular HGB Conc 35 g/dL (31-36); Mean Corpuscular Hemoglobin 31 pg (27-31); Mean Corpuscular Volume 89 fL (80-94); Mean Platelet Volume 8.4 fL (7.4-10.4); Platelet Count 224 10^3/uL (150-450); Red Blood Count 4.98 10^6 /uL (4.18-5.48); Red Cell Distribution Width 13 % (10-15); White Blood Count 9.1 10^3/uL (3.5-10.8)
[2021-05-11 06:46] LABS: Calcium 8.2 mg/dL (8.6-10.3); Magnesium 2.1 mg/dL (1.9-2.7); Potassium 4.1 mmol/L (3.5-5.0); eGFR CKD-EPI 90.9 (>60)
[2021-05-11] MEDS: SPIRIVA Respimat (tiotropium) 2.5 mcg/inh Inhaler INH SCH (07:53)
[2021-05-11] MEDS: Mometasone/Formoter 200/5 MDI INH SCH (07:53)
[2021-05-11 07:55] LABS: ABS Lymphocytes 0.9 10^3/ul (1.0-4.8); ABS Monocytes 0.8 10^3/ul (0-0.8); ABS Neutrophils 7.4 10^3/ul (1.5-7.7); Eosinophil % 0.3 %; Lymphocyte % 9.7 %
[2021-05-11] MEDS: Cholecalciferol (VIT D3) 1,000 unit TAB PO SCH (09:15)
[2021-05-11] MEDS: DOXYcycline 100 MG in NS 0.9% 250 ml 250 ML IVPB SCH (09:15)
[2021-05-11 12:08] VITALS: BP 99/69
== END 2021-05-11 15:30 | disposition home or self-care (01) | DRG 871 ==
LOC: ED 11:31 → EDHOLD 17:33 → SUATTDRO 17:33 → MED 20:02
PROVIDERS: ADMIT Hospitalist; ATTEND Hospitalist